=== PATIENT | female | born 1940 | race Caucasian/White ===

== ENCOUNTER 2016-09-03 08:00 | Outpatient (CLI) | payer MEDICARE, OTHER | END 2016-09-03 08:01 | disposition home or self-care (01) | DX: I48.91 Unspecified atrial fibrillation (principal) ==

== ENCOUNTER 2016-10-04 08:00 | Outpatient (CLI) | payer MEDICARE, OTHER | END 2016-10-04 08:01 | disposition home or self-care (01) | DX: E05.90 Thyrotoxicosis, unspecified without thyrotoxic crisis or storm (principal); I48.91 Unspecified atrial fibrillation ==

== ENCOUNTER 2016-11-08 08:51 | Outpatient (CLI) | payer MEDICARE, OTHER | END 2016-11-08 08:52 | disposition home or self-care (01) | DX: I48.91 Unspecified atrial fibrillation (principal) ==

== ENCOUNTER 2016-11-24 09:08 | Outpatient (CLI) | payer MEDICARE, OTHER | END 2016-11-24 09:09 | disposition home or self-care (01) | DX: E05.90 Thyrotoxicosis, unspecified without thyrotoxic crisis or storm (principal); I48.91 Unspecified atrial fibrillation ==

== ENCOUNTER 2016-12-22 08:53 | Outpatient (CLI) | payer MEDICARE, OTHER | END 2016-12-22 08:54 | disposition home or self-care (01) | DX: I48.91 Unspecified atrial fibrillation (principal) ==

== ENCOUNTER 2017-01-14 08:29 | Outpatient (CLI) | payer MEDICARE, OTHER | END 2017-01-14 08:30 | disposition home or self-care (01) | LOC: LAB.F 08:29 | PROVIDERS: ATTEND Pharmacist | DX: I48.91 Unspecified atrial fibrillation (principal) | CPT/HCPCS: 85610 ==

== ENCOUNTER 2017-02-09 08:53 | Outpatient (CLI) | payer MEDICARE, OTHER ==
[2017-02-09 18:52] LABS: THYROID STIMULATING HORMONE 4.15 uIU/mL (0.34-5.60)
== END 2017-02-09 08:54 | disposition home or self-care (01) ==
LOC: LAB.F 08:53
PROVIDERS: ATTEND Internal Medicine Endocrinology, Diabetes & Metabolism
DX: E05.90 Thyrotoxicosis, unspecified without thyrotoxic crisis or storm (principal); Z79.01 Long term (current) use of anticoagulants
CPT/HCPCS: 36415; 84439; 84443; 85610

== ENCOUNTER 2017-03-09 08:00 | Outpatient (CLI) | payer MEDICARE, OTHER ==
[2017-03-09 19:20] LABS: THYROID STIMULATING HORMONE 1.95 uIU/mL (0.34-5.60)
== END 2017-03-09 08:01 | disposition home or self-care (01) ==
LOC: LAB.F 08:00
PROVIDERS: ATTEND Internal Medicine Endocrinology, Diabetes & Metabolism
DX: Z79.01 Long term (current) use of anticoagulants (principal); E05.90 Thyrotoxicosis, unspecified without thyrotoxic crisis or storm
CPT/HCPCS: 36415; 84439; 84443; 85610

== ENCOUNTER 2017-04-11 14:37 | Outpatient (CLI) | payer MEDICARE, OTHER ==
[2017-04-11 19:38] LABS: THYROID STIMULATING HORMONE < 0.08 uIU/mL (0.34-5.60)
== END 2017-04-11 14:38 | disposition home or self-care (01) ==
LOC: LAB.F 14:37
PROVIDERS: ATTEND Internal Medicine Endocrinology, Diabetes & Metabolism
DX: E05.90 Thyrotoxicosis, unspecified without thyrotoxic crisis or storm (principal); Z79.01 Long term (current) use of anticoagulants
CPT/HCPCS: 36415; 84439; 84443; 85610

== ENCOUNTER 2017-04-20 12:51 | Outpatient (CLI) | payer MEDICARE, OTHER | END 2017-04-20 12:52 | disposition home or self-care (01) | LOC: LAB.F 12:51 | PROVIDERS: ATTEND Internal Medicine | DX: Z79.01 Long term (current) use of anticoagulants (principal) | CPT/HCPCS: 85610 ==

== ENCOUNTER 2017-05-12 10:37 | Outpatient (CLI) | payer MEDICARE, OTHER ==
[2017-05-12 18:28] LABS: THYROID STIMULATING HORMONE < 0.08 uIU/mL (0.34-5.60)
== END 2017-05-12 10:38 | disposition home or self-care (01) ==
LOC: LAB.F 10:37
PROVIDERS: ATTEND Internal Medicine
DX: E05.90 Thyrotoxicosis, unspecified without thyrotoxic crisis or storm (principal); Z79.01 Long term (current) use of anticoagulants
CPT/HCPCS: 36415; 84439; 84443; 85610

== ENCOUNTER 2017-05-25 09:47 | Outpatient (CLI) | payer MEDICARE, OTHER | END 2017-05-25 09:48 | disposition home or self-care (01) | LOC: LAB.F 09:47 | PROVIDERS: ATTEND Internal Medicine | DX: Z79.01 Long term (current) use of anticoagulants (principal) | CPT/HCPCS: 85610 ==

== ENCOUNTER 2017-06-29 09:10 | Outpatient (CLI) | payer MEDICARE, OTHER ==
[2017-06-29 17:57] LABS: THYROID STIMULATING HORMONE 0.68 uIU/mL (0.34-5.60)
[2017-07-01 15:22] LABS: TEST RESULT REPORT
[2017-07-01 17:52] LABS: TEST RESULT REPORT
== END 2017-06-29 09:11 | disposition home or self-care (01) ==
LOC: LAB.F 09:10
PROVIDERS: ATTEND Internal Medicine Endocrinology, Diabetes & Metabolism
DX: E05.90 Thyrotoxicosis, unspecified without thyrotoxic crisis or storm (principal); Z79.01 Long term (current) use of anticoagulants
CPT/HCPCS: 36415; 81599; 83519; 84439; 84443; 85610

== ENCOUNTER 2017-07-28 10:27 | Outpatient (CLI) | payer MEDICARE, OTHER ==
[2017-07-28 18:10] LABS: THYROID STIMULATING HORMONE 2.5 uIU/mL (0.34-5.60)
== END 2017-07-28 10:28 | disposition home or self-care (01) ==
LOC: LAB.F 10:27
PROVIDERS: ATTEND Internal Medicine Endocrinology, Diabetes & Metabolism
DX: E05.90 Thyrotoxicosis, unspecified without thyrotoxic crisis or storm (principal); Z79.01 Long term (current) use of anticoagulants
CPT/HCPCS: 36415; 84439; 84443; 85610

== ENCOUNTER 2017-09-01 08:51 | Outpatient (CLI) | payer MEDICARE, OTHER | END 2017-09-01 08:52 | disposition home or self-care (01) | LOC: LAB.F 08:51 | PROVIDERS: ATTEND Internal Medicine | DX: Z79.01 Long term (current) use of anticoagulants (principal) | CPT/HCPCS: 85610 ==

== ENCOUNTER 2017-09-28 08:25 | Outpatient (CLI) | payer MEDICARE, OTHER | END 2017-09-28 08:26 | disposition home or self-care (01) | LOC: LAB.F 08:25 | PROVIDERS: ATTEND Internal Medicine | DX: Z79.01 Long term (current) use of anticoagulants (principal) | CPT/HCPCS: 85610 ==

== ENCOUNTER 2017-10-21 08:25 | Outpatient (CLI) | payer MEDICARE, OTHER | END 2017-10-21 08:26 | disposition home or self-care (01) | LOC: LAB.F 08:25 | PROVIDERS: ATTEND Internal Medicine | DX: Z79.01 Long term (current) use of anticoagulants (principal) | CPT/HCPCS: 85610 ==

== ENCOUNTER 2017-10-27 08:55 | Outpatient (CLI) | payer MEDICARE, OTHER | END 2017-10-27 08:56 | disposition home or self-care (01) | LOC: LAB.F 08:55 | PROVIDERS: ATTEND Internal Medicine | DX: Z79.01 Long term (current) use of anticoagulants (principal) | CPT/HCPCS: 85610 ==

== ENCOUNTER 2017-11-29 09:01 | Outpatient (CLI) | payer MEDICARE, OTHER | END 2017-11-29 09:02 | disposition home or self-care (01) | LOC: LAB.F 09:01 | PROVIDERS: ATTEND Internal Medicine | DX: Z79.01 Long term (current) use of anticoagulants (principal) | CPT/HCPCS: 85610 ==

== ENCOUNTER 2017-12-26 09:30 | Outpatient (CLI) | payer MEDICARE, OTHER | END 2017-12-26 09:31 | disposition home or self-care (01) | LOC: LAB.F 09:30 | PROVIDERS: ATTEND Internal Medicine | DX: Z79.01 Long term (current) use of anticoagulants (principal) | CPT/HCPCS: 85610 ==

== ENCOUNTER 2018-01-04 08:00 | Outpatient (CLI) | payer MEDICARE, OTHER ==
[2018-01-04 18:05] LABS: T4 (THYROXINE) 6.89 ug/dL (6.09-12.23)
[2018-01-04 18:09] LABS: THYROID STIMULATING HORMONE 4.8 uIU/mL (0.34-5.60)
[2018-01-04 18:11] LABS: FREE T4 (FREE THYROXINE) 0.63 ng/dL (0.58-1.64)
== END 2018-01-04 08:01 | disposition home or self-care (01) ==
LOC: LAB.F 08:00
PROVIDERS: ATTEND Internal Medicine Endocrinology, Diabetes & Metabolism
DX: E05.90 Thyrotoxicosis, unspecified without thyrotoxic crisis or storm (principal)
CPT/HCPCS: 36415; 84436; 84439; 84443

== ENCOUNTER 2018-01-11 09:20 | Outpatient (CLI) | payer MEDICARE, OTHER | END 2018-01-11 09:21 | disposition home or self-care (01) | LOC: LAB.F 09:20 | PROVIDERS: ATTEND Internal Medicine | DX: Z79.01 Long term (current) use of anticoagulants (principal) | CPT/HCPCS: 85610 ==

== ENCOUNTER 2018-02-01 13:23 | Outpatient (CLI) | payer MEDICARE, OTHER | END 2018-02-01 13:24 | disposition home or self-care (01) | LOC: LAB.F 13:23 | PROVIDERS: ATTEND Internal Medicine | DX: Z79.01 Long term (current) use of anticoagulants (principal) | CPT/HCPCS: 85610 ==

== ENCOUNTER 2018-02-21 08:00 | Outpatient (CLI) | payer MEDICARE, OTHER | END 2018-02-21 08:01 | disposition home or self-care (01) | LOC: LAB.F 08:00 | PROVIDERS: ATTEND Internal Medicine | DX: Z79.01 Long term (current) use of anticoagulants (principal) | CPT/HCPCS: 85610 ==

== ENCOUNTER 2018-03-06 12:57 | Outpatient (CLI) | payer MEDICARE, OTHER | END 2018-03-06 12:58 | disposition home or self-care (01) | LOC: LAB.F 12:57 | PROVIDERS: ATTEND Internal Medicine | DX: Z79.01 Long term (current) use of anticoagulants (principal) | CPT/HCPCS: 85610 ==

== ENCOUNTER 2018-03-28 12:47 | Outpatient (CLI) | payer MEDICARE, OTHER | END 2018-03-28 12:48 | disposition home or self-care (01) | LOC: LAB.F 12:47 | PROVIDERS: ATTEND Internal Medicine | DX: Z79.01 Long term (current) use of anticoagulants (principal) | CPT/HCPCS: 85610 ==

== ENCOUNTER 2018-04-26 14:29 | Outpatient (CLI) | payer MEDICARE, OTHER | END 2018-04-26 14:30 | disposition home or self-care (01) | LOC: LAB.F 14:29 | PROVIDERS: ATTEND Internal Medicine Endocrinology, Diabetes & Metabolism | DX: E05.90 Thyrotoxicosis, unspecified without thyrotoxic crisis or storm (principal); Z79.01 Long term (current) use of anticoagulants | CPT/HCPCS: 36415; 84443; 85610 ==

== ENCOUNTER 2018-06-06 10:23 | Outpatient (CLI) | payer MEDICARE, OTHER | END 2018-06-06 10:24 | disposition home or self-care (01) | LOC: LAB.F 10:23 | PROVIDERS: ATTEND Internal Medicine | DX: Z79.01 Long term (current) use of anticoagulants (principal) | CPT/HCPCS: 85610 ==

== ENCOUNTER 2018-07-07 11:10 | Outpatient (CLI) | payer MEDICARE, OTHER | END 2018-07-07 11:11 | disposition home or self-care (01) | LOC: LAB.F 11:10 | PROVIDERS: ATTEND Internal Medicine | DX: Z79.01 Long term (current) use of anticoagulants (principal) | CPT/HCPCS: 85610 ==

== ENCOUNTER 2018-08-09 10:23 | Outpatient (CLI) | payer MEDICARE, OTHER | END 2018-08-09 10:24 | disposition home or self-care (01) | LOC: LAB.F 10:23 | PROVIDERS: ATTEND Internal Medicine | DX: Z79.01 Long term (current) use of anticoagulants (principal) | CPT/HCPCS: 85610 ==

== ENCOUNTER 2018-10-18 09:37 | Outpatient (CLI) | payer MEDICARE, OTHER | END 2018-10-18 09:38 | disposition home or self-care (01) | LOC: LAB.F 09:37 | PROVIDERS: ATTEND Internal Medicine | DX: Z79.01 Long term (current) use of anticoagulants (principal) | CPT/HCPCS: 85610 ==

== ENCOUNTER 2018-11-02 09:53 | Outpatient (CLI) | payer MEDICARE, OTHER | END 2018-11-02 09:54 | disposition home or self-care (01) | LOC: LAB.F 09:53 | PROVIDERS: ATTEND Internal Medicine | DX: Z79.01 Long term (current) use of anticoagulants (principal) | CPT/HCPCS: 85610 ==

== ENCOUNTER 2018-11-29 09:44 | Outpatient (CLI) | payer MEDICARE, OTHER | END 2018-11-29 09:45 | disposition home or self-care (01) | LOC: LAB.F 09:44 | PROVIDERS: ATTEND Internal Medicine | DX: Z79.01 Long term (current) use of anticoagulants (principal) | CPT/HCPCS: 85610 ==

== ENCOUNTER 2018-12-27 11:06 | Outpatient (CLI) | payer MEDICARE, OTHER | END 2018-12-27 11:07 | disposition home or self-care (01) | LOC: LAB.F 11:06 | PROVIDERS: ATTEND Internal Medicine | DX: Z51.81 Encounter for therapeutic drug level monitoring (principal); Z79.01 Long term (current) use of anticoagulants | CPT/HCPCS: 85610 ==

== ENCOUNTER 2019-01-24 10:45 | Outpatient (CLI) | payer MEDICARE, OTHER | END 2019-01-24 10:46 | disposition home or self-care (01) | LOC: LAB.F 10:45 | PROVIDERS: ATTEND Internal Medicine | DX: Z51.81 Encounter for therapeutic drug level monitoring (principal); Z79.01 Long term (current) use of anticoagulants | CPT/HCPCS: 85610 ==

== ENCOUNTER 2019-02-13 09:55 | Outpatient (CLI) | payer MEDICARE, OTHER | END 2019-02-13 09:56 | disposition home or self-care (01) | LOC: LAB.F 09:55 | PROVIDERS: ATTEND Internal Medicine | DX: Z79.01 Long term (current) use of anticoagulants (principal) | CPT/HCPCS: 85610 ==

== ENCOUNTER 2019-03-07 08:59 | Outpatient (CLI) | payer MEDICARE, OTHER | END 2019-03-07 09:00 | disposition home or self-care (01) | LOC: LAB.S 08:59 | PROVIDERS: ATTEND Internal Medicine | DX: Z79.01 Long term (current) use of anticoagulants (principal) | CPT/HCPCS: 85610 ==

== ENCOUNTER 2019-05-02 09:38 | Outpatient (CLI) | payer MEDICARE, OTHER | END 2019-05-02 09:39 | disposition home or self-care (01) | LOC: LAB.S 09:38 | PROVIDERS: ATTEND Internal Medicine | DX: Z79.01 Long term (current) use of anticoagulants (principal) | CPT/HCPCS: 85610 ==

== ENCOUNTER 2019-05-09 10:17 | Outpatient (CLI) | payer MEDICARE, OTHER | END 2019-05-09 10:18 | disposition home or self-care (01) | LOC: LAB.S 10:17 | PROVIDERS: ATTEND Internal Medicine | DX: Z79.01 Long term (current) use of anticoagulants (principal) | CPT/HCPCS: 85610 ==

== ENCOUNTER 2019-06-07 09:27 | Outpatient (CLI) | payer MEDICARE, OTHER | END 2019-06-07 09:28 | disposition home or self-care (01) | LOC: LAB.S 09:27 | PROVIDERS: ATTEND Internal Medicine | DX: Z79.01 Long term (current) use of anticoagulants (principal) | CPT/HCPCS: 85610 ==

== ENCOUNTER 2019-06-21 13:09 | Outpatient (CLI) | payer MEDICARE, OTHER | END 2019-06-21 13:10 | disposition home or self-care (01) | LOC: LAB.S 13:09 | PROVIDERS: ATTEND Internal Medicine | DX: Z79.01 Long term (current) use of anticoagulants (principal) | CPT/HCPCS: 85610 ==

== ENCOUNTER 2019-07-25 09:32 | Outpatient (CLI) | payer MEDICARE, OTHER | END 2019-07-25 09:33 | disposition home or self-care (01) | LOC: LAB.S 09:32 | PROVIDERS: ATTEND Internal Medicine | DX: Z79.01 Long term (current) use of anticoagulants (principal) | CPT/HCPCS: 85610 ==

== ENCOUNTER 2019-08-28 08:00 | Outpatient (CLI) | payer MEDICARE, OTHER | END 2019-08-28 23:59 | disposition home or self-care (01) | LOC: LAB.S 08:00 | PROVIDERS: ATTEND Internal Medicine | DX: Z79.01 Long term (current) use of anticoagulants (principal) | CPT/HCPCS: 85610 ==

== ENCOUNTER 2019-09-26 10:22 | Outpatient (CLI) | payer MEDICARE, OTHER | END 2019-09-26 10:23 | disposition home or self-care (01) | LOC: LAB.S 10:22 | PROVIDERS: ATTEND Internal Medicine | DX: Z79.01 Long term (current) use of anticoagulants (principal) | CPT/HCPCS: 85610 ==

== ENCOUNTER 2019-10-24 09:54 | Outpatient (CLI) | payer MEDICARE, OTHER | END 2019-10-24 09:55 | disposition home or self-care (01) | LOC: LAB.S 09:54 | PROVIDERS: ATTEND Internal Medicine | DX: Z79.01 Long term (current) use of anticoagulants (principal) | CPT/HCPCS: 85610 ==

== ENCOUNTER 2019-11-14 10:36 | Outpatient (CLI) | payer MEDICARE, OTHER | END 2019-11-14 10:37 | disposition home or self-care (01) | LOC: LAB.S 10:36 | PROVIDERS: ATTEND Internal Medicine | DX: Z79.01 Long term (current) use of anticoagulants (principal) | CPT/HCPCS: 85610 ==

== ENCOUNTER 2020-01-01 10:22 | Outpatient (CLI) | payer MEDICARE, OTHER | END 2020-01-01 10:23 | disposition home or self-care (01) | LOC: LAB 10:22 | PROVIDERS: ATTEND Internal Medicine | DX: Z79.01 Long term (current) use of anticoagulants (principal) | CPT/HCPCS: 85610 ==

== ENCOUNTER 2020-01-23 13:12 | Outpatient (CLI) | payer MEDICARE, OTHER | END 2020-01-23 13:13 | disposition home or self-care (01) | LOC: LAB.S 13:12 | PROVIDERS: ATTEND Internal Medicine | DX: Z79.01 Long term (current) use of anticoagulants (principal) | CPT/HCPCS: 85610 ==

== ENCOUNTER 2020-02-26 10:14 | Outpatient (CLI) | payer MEDICARE, OTHER | END 2020-02-26 10:15 | disposition home or self-care (01) | LOC: LAB.S 10:14 | PROVIDERS: ATTEND Internal Medicine | DX: Z79.01 Long term (current) use of anticoagulants (principal) | CPT/HCPCS: 85610 ==

== ENCOUNTER 2020-03-26 10:57 | Outpatient (CLI) | payer MEDICARE, OTHER | END 2020-03-26 10:58 | disposition home or self-care (01) | LOC: LAB.S 10:57 | PROVIDERS: ATTEND Internal Medicine | DX: Z79.01 Long term (current) use of anticoagulants (principal) | CPT/HCPCS: 85610 ==

== ENCOUNTER 2020-04-23 13:43 | Outpatient (CLI) | payer MEDICARE, OTHER | END 2020-04-23 13:44 | disposition home or self-care (01) | LOC: LAB.S 13:43 | PROVIDERS: ATTEND Internal Medicine | DX: Z79.01 Long term (current) use of anticoagulants (principal) | CPT/HCPCS: 85610 ==

== ENCOUNTER 2020-06-19 10:28 | Outpatient (CLI) | payer MEDICARE, OTHER | END 2020-06-19 10:29 | disposition home or self-care (01) | LOC: LAB.S 10:28 | PROVIDERS: ATTEND Internal Medicine | DX: Z79.01 Long term (current) use of anticoagulants (principal) | CPT/HCPCS: 85610 ==

== ENCOUNTER 2020-07-03 12:03 | Outpatient (CLI) | payer MEDICARE, OTHER | END 2020-07-03 12:04 | disposition home or self-care (01) | LOC: COV 12:03 | PROVIDERS: ATTEND Family Medicine | DX: R05 Cough (principal); Z20.828 Contact with and (suspected) exposure to other viral communicable diseases ==

== ENCOUNTER 2020-07-15 11:24 | Outpatient (CLI) | payer MEDICARE, OTHER | END 2020-07-15 11:25 | disposition home or self-care (01) | LOC: LAB.S 11:24 | PROVIDERS: ATTEND Internal Medicine | DX: Z79.01 Long term (current) use of anticoagulants (principal) | CPT/HCPCS: 85610 ==

== ENCOUNTER 2020-08-12 11:29 | Outpatient (CLI) | payer MEDICARE, OTHER | END 2020-08-12 11:30 | disposition home or self-care (01) | LOC: LAB.S 11:29 | PROVIDERS: ATTEND Internal Medicine | DX: Z79.01 Long term (current) use of anticoagulants (principal) | CPT/HCPCS: 85610 ==

== ENCOUNTER 2020-09-16 13:44 | Outpatient (CLI) | payer MEDICARE, OTHER | END 2020-09-16 13:45 | disposition home or self-care (01) | LOC: LAB.S 13:44 | PROVIDERS: ATTEND Internal Medicine | DX: Z79.01 Long term (current) use of anticoagulants (principal) | CPT/HCPCS: 85610 ==

== ENCOUNTER 2020-10-23 11:16 | Outpatient (CLI) | payer MEDICARE, OTHER | END 2020-10-23 11:17 | disposition home or self-care (01) | LOC: LAB.S 11:16 | PROVIDERS: ATTEND Internal Medicine | DX: Z79.01 Long term (current) use of anticoagulants (principal) | CPT/HCPCS: 85610 ==

== ENCOUNTER 2020-12-02 11:27 | Outpatient (CLI) | payer MEDICARE, OTHER | END 2020-12-02 11:28 | disposition home or self-care (01) | LOC: LAB.S 11:27 | PROVIDERS: ATTEND Internal Medicine | DX: Z79.01 Long term (current) use of anticoagulants (principal) | CPT/HCPCS: 85610 ==

== ENCOUNTER 2021-01-28 15:21 | Outpatient (CLI) | payer MEDICARE, OTHER | END 2021-01-28 15:22 | disposition home or self-care (01) | LOC: LAB.S 15:21 | PROVIDERS: ATTEND Internal Medicine | DX: Z79.01 Long term (current) use of anticoagulants (principal) | CPT/HCPCS: 36416; 85610 ==

== ENCOUNTER 2021-02-04 11:04 | Outpatient (CLI) | payer MEDICARE, OTHER | END 2021-02-04 11:05 | disposition home or self-care (01) | LOC: LAB.S 11:04 | PROVIDERS: ATTEND Internal Medicine | DX: Z79.01 Long term (current) use of anticoagulants (principal) | CPT/HCPCS: 36416; 85610 ==

== ENCOUNTER 2021-02-19 13:52 | Outpatient (CLI) | payer MEDICARE, OTHER | END 2021-02-19 13:53 | disposition home or self-care (01) | LOC: LAB.S 13:52 | PROVIDERS: ATTEND Internal Medicine | DX: Z79.01 Long term (current) use of anticoagulants (principal) | CPT/HCPCS: 36416; 85610 ==

== ENCOUNTER 2021-03-04 10:08 | Outpatient (CLI) | payer MEDICARE, OTHER | END 2021-03-04 10:09 | disposition home or self-care (01) | LOC: LAB.S 10:08 | PROVIDERS: ATTEND Internal Medicine | DX: Z79.01 Long term (current) use of anticoagulants (principal) | CPT/HCPCS: 36416; 85610 ==

== ENCOUNTER 2021-03-19 10:05 | Outpatient (CLI) | payer MEDICARE, OTHER | END 2021-03-19 10:06 | disposition home or self-care (01) | LOC: LAB.S 10:05 | PROVIDERS: ATTEND Internal Medicine | DX: Z79.01 Long term (current) use of anticoagulants (principal) | CPT/HCPCS: 36416; 85610 ==

== ENCOUNTER 2021-04-06 10:12 | Outpatient (CLI) | payer MEDICARE, OTHER | END 2021-04-06 10:13 | disposition home or self-care (01) | LOC: LAB.S 10:12 | PROVIDERS: ATTEND Internal Medicine | DX: Z79.01 Long term (current) use of anticoagulants (principal) | CPT/HCPCS: 36416; 85610 ==

== ENCOUNTER 2021-04-13 10:27 | Outpatient (CLI) | payer MEDICARE, OTHER ==
[2021-04-13 15:45] LABS: FREE T3 3.26 pg/mL (2.5-3.9)
[2021-04-13 15:50] LABS: FREE T4 (FREE THYROXINE) 0.84 ng/dL (0.58-1.64)
== END 2021-04-13 10:28 | disposition home or self-care (01) ==
LOC: LAB.S 10:27
DX: T31.9 Burns involving 90% or more of body surface (principal); R53.83 Other fatigue; R68.89 Other general symptoms and signs
CPT/HCPCS: 36415; 84439; 84481; 87040

== ENCOUNTER 2021-05-06 10:46 | Outpatient (CLI) | payer MEDICARE, OTHER | END 2021-05-06 10:47 | disposition home or self-care (01) | LOC: LAB.S 10:46 | PROVIDERS: ATTEND Internal Medicine | DX: Z79.01 Long term (current) use of anticoagulants (principal) | CPT/HCPCS: 36416; 85610 ==

== ENCOUNTER 2021-05-08 09:38 | Outpatient (CLI) | payer MEDICARE, OTHER | END 2021-05-08 09:39 | disposition home or self-care (01) | LOC: LAB.S 09:38 | PROVIDERS: ATTEND Internal Medicine | DX: Z79.01 Long term (current) use of anticoagulants (principal); I48.0 Paroxysmal atrial fibrillation | CPT/HCPCS: 36416; 85610 ==

== ENCOUNTER 2021-05-14 10:19 | Outpatient (CLI) | payer MEDICARE, OTHER | END 2021-05-14 10:20 | disposition home or self-care (01) | LOC: LAB.S 10:19 | PROVIDERS: ATTEND Internal Medicine | DX: Z79.01 Long term (current) use of anticoagulants (principal) | CPT/HCPCS: 36416; 85610 ==

== ENCOUNTER 2021-05-21 10:23 | Outpatient (CLI) | payer MEDICARE, OTHER | END 2021-05-21 10:24 | disposition home or self-care (01) | LOC: LAB.S 10:23 | PROVIDERS: ATTEND Internal Medicine | DX: Z79.01 Long term (current) use of anticoagulants (principal) | CPT/HCPCS: 36416; 85610 ==

== ENCOUNTER 2021-06-11 09:50 | Outpatient (CLI) | payer MEDICARE, OTHER | END 2021-06-11 09:51 | disposition home or self-care (01) | LOC: LAB.S 09:50 | PROVIDERS: ATTEND Internal Medicine | DX: Z79.01 Long term (current) use of anticoagulants (principal) | CPT/HCPCS: 36416; 85610 ==

== ENCOUNTER 2021-07-05 19:06 | Outpatient (CLI) | payer MEDICARE, OTHER | END 2021-07-05 19:07 | disposition critical access hospital (66) | LOC: EMS 19:06 | DX: R55 Syncope and collapse (principal) | CPT/HCPCS: A0425; A0429 ==

== ENCOUNTER 2021-07-05 19:35 | Emergency (ER) | payer MEDICARE, OTHER ==
--- NOTE | 2021-07-05 19:45 | ED Physician Documentation ---
PD HPI ALTERED MENTAL STATUS - Stated complaint Stated Complaint: NEAR SYNCOPE - Chief complaint Chief Complaint: Neuro - History obtained from History obtained from: Patient, Family, EMS - Additional information Additional information: 80yo femle with eczema and afib presents via EMS For altered mental status and fever. Reportedly has been treated for eczema at [facility] with body wide high potency steroid and today became confused around lunchtime. Had temp of 101.5. Patient has no complaints but is altered and a poor historian. I tried calling the house phone on arrival to talk with the but there was no answer. 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, Breast implants - Present Medications Home Medications: Ambulatory Orders Medication Instructions Recorded Confirmed Estradiol 0.05 mg Patch [Climara 03/14/15 07/16/15 0.05 mg] Sotalol [Betapace] 80 mg PO DAILY 07/16/15 07/16/15 - Allergies Allergies/Adverse Reactions: Allergies Allergy/AdvReac Type Severity Reaction Status Date / Time No Known Drug Allergies Allergy Verified 07/05/21 19:48 - Social History Does the pt smoke?: No Does the pt drink ETOH?: No Does the pt have substance abuse?: No - Immunizations Immunizations: TDAP >10years/unknown - POLST Patient has POLST: No PD ED PE NORMAL - Vitals Vital signs reviewed: Yes - General General: Other (Is alert and oriented to person but not place or time or events. She is tachypneic and tachycardic.) - HEENT HEENT: PERRL, EOMI - Neck Neck: Supple, no meningeal sign, No bony TTP - Cardiac Cardiac: Other (Irregularly irregular and rapid) - Respiratory Respiratory: Clear bilaterally, Other (Tachypneic but nonlabored and clear) - Abdomen Abdomen: Soft, Non tender - Derm Derm: Normal color, Warm and dry, Other (She has diffuse erythema especially anteriorly with a fine pustular rash especially in the axilla and upper arms and legs. Scalp to but seems to spare the face.) - Neuro Neuro: No motor deficit, No sensory deficit Eye Opening: Spontaneous Motor: Obeys Commands Verbal: Confused GCS Score: 14 Results - Vitals Vitals: Vital Signs - 24 hr 07/05/21 07/05/21 07/05/21 19:30 20:42 21:00 Temperature 37.6 C Heart Rate 98 95 96 Respiratory 25 H 21 Rate Blood Pressure 125/73 143/51 H 141/46 H O2 Saturation 98 99 96 07/05/21 21:54 Temperature Heart Rate 87 Respiratory 24 Rate Blood Pressure 132/47 H O2 Saturation 97 Oxygen O2 Source Room air - EKG (time done) 1944 Rate: Rate (enter#) (102) Rhythm: Sinus tachycardia (w pvc), LAE [place]: Normal Intervals: Normal [place] QRS: Normal Ischemia: Q waves (ant/septal). No: ST elevation c/w ischemia, ST depression - Labs Labs: Laboratory Tests 07/05/21 07/05/21 07/05/21 20:04 20:04 20:04 WBC 20.3 H RBC 3.62 L Hgb 10.8 L Hct 34.8 L MCV 96.1 MCH 29.8 MCHC 31.0 L RDW 15.8 H Plt Count 203 MPV 11.0 H Neut # (Auto) 18.1 H Lymph # (Auto) 1.0 L [place] # (Auto) 0.9 Eos # (Auto) 0.1 Baso # (Auto) 0.1 Absolute Nucleated RBC 0.00 Nucleated RBC % 0.0 PT INR VBG pH 7.511 H VBG pCO2 32.4 L VBG pO2 73.2 H VBG HCO3 25.3 VBG Total CO2 26.3 VBG O2 Saturation 95.4 H VBG Base Excess 2.7 H Sodium 134 L Potassium 3.4 L Chloride 100 L Carbon Dioxide 23 Anion Gap 11.0 BUN 21 H Creatinine 0.6 Estimated GFR (MDRD) 96 Glucose 146 H Lactic Acid Calcium 8.3 L Total Bilirubin 0.9 AST 49 H ALT 32 Alkaline Phosphatase 105 Total Protein 6.5 L Albumin 3.0 L Globulin 3.5 Albumin/Globulin Ratio 0.9 L TSH Urine Color Urine Clarity Urine pH Ur Specific [place] Urine Protein Urine Glucose (UA) Urine Ketones Urine Occult Blood Urine Nitrite Urine Bilirubin Urine Urobilinogen Ur Leukocyte Esterase Urine RBC Urine WBC Ur Squamous Epith Cells Urine Bacteria Urine Culture Comments Nasal Adenovirus (PCR) Nasal B. parapertussis DNA (PCR) Nasal Coronavir 229E PCR Nasal Coronavir HKU1 PCR Nasal Coronavir NL63 PCR Nasal Coronavir OC43 PCR Nasal Enterovir/Rhinovir PCR Nasal Influenza B PCR Nasal Influenza A PCR Nasal Parainfluen 1 PCR Nasal Parainfluen 2 PCR Nasal Parainfluen 3 PCR Nasal Parainfluen 4 PCR Nasal RSV (PCR) Nasal B.pertussis DNA PCR Nasal C.pneumoniae (PCR) Justyn Human Metapneumo PCR Nasal M.pneumoniae (PCR) Nasal SARS-CoV-2 (PCR) 07/05/21 07/05/21 07/05/21 20:04 20:04 20:26 WBC RBC Hgb Hct MCV MCH MCHC RDW Plt Count MPV Neut # (Auto) Lymph # (Auto) [place] # (Auto) Eos # (Auto) Baso # (Auto) Absolute Nucleated RBC Nucleated RBC % PT 15.1 H INR 1.4 H VBG pH VBG pCO2 VBG pO2 VBG HCO3 VBG Total CO2 VBG O2 Saturation VBG Base Excess Sodium Potassium Chloride Carbon Dioxide Anion Gap BUN Creatinine Estimated GFR (MDRD) Glucose Lactic Acid 1.8 Calcium Total Bilirubin AST ALT Alkaline Phosphatase Total Protein Albumin Globulin Albumin/Globulin Ratio TSH 1.89 Urine Color Urine Clarity Urine pH Ur Specific [place] Urine Protein Urine Glucose (UA) Urine Ketones Urine Occult Blood Urine Nitrite Urine Bilirubin Urine Urobilinogen Ur Leukocyte Esterase Urine RBC Urine WBC Ur Squamous Epith Cells Urine Bacteria Urine Culture Comments Nasal Adenovirus (PCR) Nasal B. parapertussis DNA (PCR) Nasal Coronavir 229E PCR Nasal Coronavir HKU1 PCR Nasal Coronavir NL63 PCR Nasal Coronavir OC43 PCR Nasal Enterovir/Rhinovir PCR Nasal Influenza B PCR Nasal Influenza A PCR Nasal Parainfluen 1 PCR Nasal Parainfluen 2 PCR Nasal Parainfluen 3 PCR Nasal Parainfluen 4 PCR Nasal RSV (PCR) Nasal B.pertussis DNA PCR Nasal C.pneumoniae (PCR) Justyn Human Metapneumo PCR Nasal M.pneumoniae (PCR) Nasal SARS-CoV-2 (PCR) 07/05/21 07/05/21 20:36 20:49 WBC RBC Hgb Hct MCV MCH MCHC RDW Plt Count MPV Neut # (Auto) Lymph # (Auto) [place] # (Auto) Eos # (Auto) Baso # (Auto) Absolute Nucleated RBC Nucleated RBC % PT INR VBG pH VBG pCO2 VBG pO2 VBG HCO3 VBG Total CO2 VBG O2 Saturation VBG Base Excess Sodium Potassium Chloride Carbon Dioxide Anion Gap BUN Creatinine Estimated GFR (MDRD) Glucose Lactic Acid Calcium Total Bilirubin AST ALT Alkaline Phosphatase Total Protein Albumin Globulin Albumin/Globulin Ratio TSH Urine Color YELLOW Urine Clarity CLEAR Urine pH 8.0 H Ur Specific [place] 1.015 Urine Protein TRACE Urine Glucose (UA) NEGATIVE Urine Ketones NEGATIVE Urine Occult Blood NEGATIVE Urine Nitrite NEGATIVE Urine Bilirubin NEGATIVE Urine Urobilinogen 1 (NORMAL) Ur Leukocyte Esterase NEGATIVE Urine RBC 0-5 Urine WBC 0-3 Ur Squamous Epith Cells RARE Squamous Urine Bacteria None Seen Urine Culture Comments NOT INDICATED Nasal Adenovirus (PCR) NOT DETECTED Nasal B. parapertussis DNA (PCR) NOT DETECTED Nasal Coronavir 229E PCR NOT DETECTED Nasal Coronavir HKU1 PCR NOT DETECTED Nasal Coronavir NL63 PCR NOT DETECTED Nasal Coronavir OC43 PCR NOT DETECTED Nasal Enterovir/Rhinovir PCR NOT DETECTED Nasal Influenza B PCR NOT DETECTED Nasal Influenza A PCR NOT DETECTED Nasal Parainfluen 1 PCR NOT DETECTED Nasal Parainfluen 2 PCR NOT DETECTED Nasal Parainfluen 3 PCR NOT DETECTED Nasal Parainfluen 4 PCR NOT DETECTED Nasal RSV (PCR) NOT DETECTED Nasal B.pertussis DNA PCR NOT DETECTED Nasal C.pneumoniae (PCR) NOT DETECTED Justyn Human Metapneumo PCR NOT DETECTED Nasal M.pneumoniae (PCR) NOT DETECTED Nasal SARS-CoV-2 (PCR) NOT DETECTED - Rads (name of study) 1v cxr Radiology: EMP read contemporaneously (NAD) PD MEDICAL DECISION MAKING - ED course ED course: Her arrived shortly after initial evaluation. He notes that the patient got out of [facility] 8 days ago. She was on prophylactic clindamycin which she recently completed. He does not think her eczema looks any worse than it has been. He notes that the patient has been quite weak and had a syncopal episode today while trying to go to the bathroom. She also was moving very slow and became incontinent of urine which is not usual for her. 80-year-old woman presents with encephalopathy/delirium associated with a fever of 101.5. She has a benign belly and no clinical findings of meningitis. No pulmonary complaints and chest x-ray is clear. By process of illumination and negative urinalysis I am worried that the skin may be her source, but her eczema is so bad that it there is a little difficult to differentiate without dermatology. Patient's wanted her transported to the [facility] which given the above is not unreasonable and she was very sick accepted by Dr. Haris Overton at approximately 10:05 PM. They did request that we hold her here for slightly later arrival, may be at 6:30 in the morning.Was administered cefepime and vancomycin after blood cultures here. The physician at [facility] did note that the leukocytosis was not particularly acute. Departure - Departure Disposition: 02 Transfer Acute Care Hosp Clinical Impression: Sepsis, Encephalopathy acute, Eczema Condition: Serious
[2021-07-05 20:14] LABS: BASOPHILS # (AUTO) 0.1 10^3/uL (0.0-0.1); BASOPHILS % (AUTO) 0.3 %; EOSINOPHILS # (AUTO) 0.1 10^3/uL (0.0-0.7); EOSINOPHILS % (AUTO) 0.3 %; HCT - HEMATOCRIT 34.8 % (37.0-47.0); HGB - HEMOGLOBIN 10.8 g/dL (12.0-16.0); LYMPHOCYTES % (AUTO) 5.1 %; MEAN CORPUSCULAR HEMOGLOBIN 29.8 pg (27.0-31.0); MEAN CORPUSCULAR VOLUME 96.1 fL (81.0-99.0); MONOCYTES # (AUTO) 0.9 10^3/uL (0.0-1.0); MONOCYTES % (AUTO) 4.5 %; NEUTROPHILS # (AUTO) 18.1 10^3/uL (1.5-6.6); NEUTROPHILS % (AUTO) 89.3 %; PLT - PLATELET COUNT 203 10^3/uL (130-450); RED BLOOD COUNT 3.62 10^6/uL (4.20-5.40); RED CELL DISTRIBUTION WIDTH 15.8 % (12.0-15.0); WHITE BLOOD COUNT 20.3 x10^3/uL (4.8-10.8)
[2021-07-05 20:16] LABS: VBG BASE EXCESS 2.7 mmol/L (-2 - +2); VBG HCO3 25.3 mmol/L (23-28); VBG OXYGEN SATURATION 95.4 % (60-80); VBG PCO2 32.4 mmHg (41-51); VBG PH 7.511 (7.31-7.41); VBG PO2 73.2 mmHg (25-47); VBG TOTAL CO2 26.3 mmol/L (24-29)
--- NOTE | 2021-07-05 20:23 | XRAY Report ---
PROCEDURE: Chest 1 View X-Ray INDICATIONS: fever TECHNIQUE: One view of the chest was acquired. COMPARISON: None. FINDINGS: Surgical changes and devices: None. Lungs and pleura: No pleural effusions or pneumothorax. Lungs are clear. Mediastinum: Mediastinal contours appear normal. Heart size is normal. Bones and chest wall: No suspicious bony lesions. Overlying soft tissues appear unremarkable. IMPRESSION: No acute cardiopulmonary pathology. Reviewed by: Pastor Marquez MD on 07/05/2021 8:22 PM [facility] Approved by: Pastor Marquez MD on 07/05/2021 8:22 PM [facility] Station ID: [id number]
[2021-07-05 20:25] LABS: ALBUMIN/GLOBULIN RATIO 0.9 (1.0-2.2); BILIRUBIN,TOTAL 0.9 mg/dL (0.2-1.0); CALCIUM 8.3 mg/dL (8.5-10.3); CREATININE 0.6 mg/dL (0.4-1.0); POTASSIUM 3.4 mmol/L (3.5-5.0); TOTAL PROTEIN 6.5 g/dL (6.7-8.2)
[2021-07-05] MEDS ORDERED: SODIUM CHLORIDE 0.9% 1,000 ML IV STA ×2 (20:31→22:06)
[2021-07-05 20:39] LABS: INR 1.4 (0.8-1.2); PT - PROTHROMBIN TIME 15.1 secs (9.9-12.6)
[2021-07-05 21:00] LABS: BILIRUBIN,URINE NEGATIVE (NEGATIVE); GLUCOSE, URINE (UA) NEGATIVE (NEGATIVE); KETONES,URINE (UA) NEGATIVE (NEGATIVE); LEUKOCYTE ESTERASE, URINE NEGATIVE (NEGATIVE); NITRITE,URINE NEGATIVE (NEGATIVE); OCCULT BLOOD,URINE NEGATIVE (NEGATIVE); PROTEIN,URINE TRACE mg/dL (NEGATIVE); UROBILINOGEN,URINE 1 (NORMAL) E.U./dL (NORMAL)
[2021-07-05 21:10] LABS: CLARITY,URINE CLEAR (CLEAR)
[2021-07-05] MEDS ORDERED: CEFEPIME 2 GM in SODIUM CHLORIDE 0.9% MINIBAG 100 ML IV STA (21:13)
[2021-07-05] MEDS ORDERED: VANCOMYCIN INJ 1.25 GM in SODIUM CHLORIDE 0.9% 500 ML IV STA (21:13)
[2021-07-05 21:17] LABS: BACTERIA,URINE None Seen /HPF (None Seen); RBC,URINE 0-5 /HPF (0-5); SQUAMOUS EPITHELIAL CELL,UR RARE Squamous (<= Few); WBC,URINE 0-3 /HPF (0-5)
[2021-07-05] MEDS ORDERED: VANCOMYCIN 1 GM VIAL ONE (21:22)
[2021-07-05 21:48] LABS: B. PARAPERTUSSIS- RESP PCR PAN NOT DETECTED; B. PERTUSSIS- RESP PCR PANEL NOT DETECTED; C. PNEUMONIAE- RESP PCR PANEL NOT DETECTED; CORONAVIRUS 229E-RESP PCR NOT DETECTED; CORONAVIRUS HKU1-RESP PCR NOT DETECTED; CORONAVIRUS NL63-RESP PCR NOT DETECTED; CORONAVIRUS OC43-RESP PCR NOT DETECTED; HUMAN METAPNEUMOVIRUS NOT DETECTED; INFLUENZA A- RESP PCR PANEL NOT DETECTED; INFLUENZA B - RESP PCR PANEL NOT DETECTED; M. PNEUMONIAE- RESP PCR PANEL NOT DETECTED; PARAINFLUENZA VIRUS 1 NOT DETECTED; PARAINFLUENZA VIRUS 2 NOT DETECTED; PARAINFLUENZA VIRUS 3 NOT DETECTED; PARAINFLUENZA VIRUS 4 NOT DETECTED; RHINOVIRUS/ENTEROVIRUS NOT DETECTED; RSV- RESP PCR PANEL NOT DETECTED; SARS-CoV-2 -RESP PCR PANEL NOT DETECTED
[2021-07-06] MEDS ORDERED: ACETAMINOPHEN 325 MG TABLET PO STA (04:35)
[2021-07-06 05:57] VITALS: BP 129/54
== END 2021-07-06 05:59 | disposition short-term general hospital (02) ==
LOC: EDUNIT# → ED 19:35
DX: A41.9 Sepsis, unspecified organism (principal); G93.40 Encephalopathy, unspecified; L30.9 Dermatitis, unspecified; I48.91 Unspecified atrial fibrillation; Z20.822 Contact with and (suspected) exposure to COVID-19
CPT/HCPCS: 36415; 71045; 80053; 81001; 82803; 83605; 84443; 85025; 85610; 87040; 87631; 93005; 96365; 96366; 96367; 99285; A9270; J3370; 0202U; 87086

== ENCOUNTER 2021-07-13 09:30 | Outpatient (CLI) | payer MEDICARE, OTHER | END 2021-07-13 09:31 | disposition home or self-care (01) | LOC: LAB.S 09:30 | PROVIDERS: ATTEND Internal Medicine | DX: Z79.01 Long term (current) use of anticoagulants (principal) | CPT/HCPCS: 36416; 85610 ==

== ENCOUNTER 2021-07-20 08:45 | Outpatient (CLI) | payer MEDICARE, OTHER | END 2021-07-20 08:46 | disposition home or self-care (01) | LOC: LAB.S 08:45 | PROVIDERS: ATTEND Internal Medicine | DX: Z79.01 Long term (current) use of anticoagulants (principal) | CPT/HCPCS: 36416; 85610 ==

== ENCOUNTER 2021-08-01 09:17 | Outpatient (CLI) | payer MEDICARE, OTHER ==
[2021-08-01 15:09] LABS: BASOPHILS % (AUTO) 0.3 %; EOSINOPHILS # (AUTO) 0.3 10^3/uL (0.0-0.7); EOSINOPHILS % (AUTO) 3.3 %; HCT - HEMATOCRIT 35.2 % (37.0-47.0); HGB - HEMOGLOBIN 10.9 g/dL (12.0-16.0); LYMPHOCYTES # (AUTO) 1.5 10^3/uL (1.5-3.5); LYMPHOCYTES % (AUTO) 14.3 %; MEAN CORPUSCULAR HEMOGLOBIN 28.8 pg (27.0-31.0); MEAN CORPUSCULAR VOLUME 92.9 fL (81.0-99.0); MEAN PLATELET VOLUME 9.8 fL (7.9-10.8); MONOCYTES # (AUTO) 0.5 10^3/uL (0.0-1.0); NEUTROPHILS # (AUTO) 7.9 10^3/uL (1.5-6.6); NEUTROPHILS % (AUTO) 76.7 %; PLT - PLATELET COUNT 403 10^3/uL (130-450); RED BLOOD COUNT 3.79 10^6/uL (4.20-5.40); RED CELL DISTRIBUTION WIDTH 15.9 % (12.0-15.0); WHITE BLOOD COUNT 10.3 x10^3/uL (4.8-10.8)
[2021-08-01 15:36] LABS: ALBUMIN/GLOBULIN RATIO 0.8 (1.0-2.2); BILIRUBIN,TOTAL 0.6 mg/dL (0.2-1.0); CALCIUM 9.1 mg/dL (8.5-10.3); CREATININE 0.5 mg/dL (0.4-1.0); POTASSIUM 4.3 mmol/L (3.5-5.0); TOTAL PROTEIN 6.9 g/dL (6.7-8.2)
== END 2021-08-01 09:18 | disposition home or self-care (01) ==
LOC: LAB.S 09:17
DX: Z51.81 Encounter for therapeutic drug level monitoring (principal); Z79.01 Long term (current) use of anticoagulants
CPT/HCPCS: 36415; 36416; 80053; 85025; 85610

== ENCOUNTER 2021-08-10 11:23 | Outpatient (CLI) | payer MEDICARE, OTHER | END 2021-08-10 11:24 | disposition home or self-care (01) | LOC: LAB.S 11:23 | PROVIDERS: ATTEND Internal Medicine | DX: Z79.01 Long term (current) use of anticoagulants (principal) | CPT/HCPCS: 36416; 85610 ==

== ENCOUNTER 2021-08-17 12:38 | Outpatient (CLI) | payer MEDICARE, OTHER | END 2021-08-17 12:39 | disposition home or self-care (01) | LOC: LAB.S 12:38 | PROVIDERS: ATTEND Internal Medicine | DX: Z79.01 Long term (current) use of anticoagulants (principal) | CPT/HCPCS: 36416; 85610 ==

== ENCOUNTER 2021-08-25 10:20 | Outpatient (CLI) | payer MEDICARE, OTHER | END 2021-08-25 10:21 | disposition critical access hospital (66) | LOC: EMS 10:20 | DX: R50.9 Fever, unspecified (principal); R53.1 Weakness; R41.0 Disorientation, unspecified | CPT/HCPCS: A0425; A0429 ==

== ENCOUNTER 2021-08-25 11:01 | Emergency (ER) | payer MEDICARE, OTHER ==
[2021-08-25 11:51] LABS: BASOPHILS % (AUTO) 0.3 %; EOSINOPHILS # (AUTO) 0.4 10^3/uL (0.0-0.7); EOSINOPHILS % (AUTO) 3.7 %; HCT - HEMATOCRIT 30.8 % (37.0-47.0); HGB - HEMOGLOBIN 9.7 g/dL (12.0-16.0); LYMPHOCYTES # (AUTO) 1.3 10^3/uL (1.5-3.5); MEAN CORPUSCULAR HEMOGLOBIN 28.8 pg (27.0-31.0); MEAN CORPUSCULAR HGB CONC 31.5 g/dL (32.0-36.0); MEAN CORPUSCULAR VOLUME 91.4 fL (81.0-99.0); MEAN PLATELET VOLUME 8.8 fL (7.9-10.8); MONOCYTES # (AUTO) 0.6 10^3/uL (0.0-1.0); MONOCYTES % (AUTO) 5.1 %; NEUTROPHILS # (AUTO) 9.3 10^3/uL (1.5-6.6); NEUTROPHILS % (AUTO) 79.5 %; PLT - PLATELET COUNT 376 10^3/uL (130-450); RED BLOOD COUNT 3.37 10^6/uL (4.20-5.40); WHITE BLOOD COUNT 11.7 x10^3/uL (4.8-10.8)
[2021-08-25 11:57] LABS: PT - PROTHROMBIN TIME 65.6 secs (9.9-12.6)
[2021-08-25] MEDS ORDERED: CARBOXYMETHYLCELLULOSE OPHTH DROPS LEFTEYE STA (11:59)
[2021-08-25 12:02] LABS: ALBUMIN 2.3 g/dL (3.2-5.5); ALBUMIN/GLOBULIN RATIO 0.7 (1.0-2.2); BILIRUBIN,TOTAL 0.5 mg/dL (0.2-1.0); CREATININE 0.7 mg/dL (0.4-1.0); POTASSIUM 3.9 mmol/L (3.5-5.0); TOTAL PROTEIN 5.6 g/dL (6.7-8.2)
[2021-08-25 12:12] LABS: BILIRUBIN,URINE NEGATIVE (NEGATIVE); GLUCOSE, URINE (UA) NEGATIVE (NEGATIVE); KETONES,URINE (UA) NEGATIVE (NEGATIVE); LEUKOCYTE ESTERASE, URINE NEGATIVE (NEGATIVE); NITRITE,URINE NEGATIVE (NEGATIVE); OCCULT BLOOD,URINE NEGATIVE (NEGATIVE); PH,URINE 8.5 PH (5.0-7.5); PROTEIN,URINE TRACE mg/dL (NEGATIVE); UROBILINOGEN,URINE 0.2 (NORMAL) E.U./dL (NORMAL)
[2021-08-25 12:13] LABS: INR 5.9 (0.8-1.2)
--- NOTE | 2021-08-25 12:13 | ED Physician Documentation ---
History of Present Illness - Stated complaint Stated Complaint: FEMALE - Chief complaint Chief Complaint: UTI - Additonal information Additional information: 80-year-old female who has a history of atrial fibrillation anticoagulated on Coumadin as well as extensive psoriasis presents the emergency department for reevaluation of generalized weakness and fatigue. She has had low-grade temperature elevations up to 101 at home over the last week. She was seen at a local walk-in clinic on 21 August and thought to have a urinary tract infection. She was started on Keflex. Despite this her symptoms have not improved. The urine culture subsequently grew polymicrobial growth without findings of acute infection. Patient's reports that she has been out of her metoprolol for the last 4 days but despite this she has not had any blood pressure elevations. Review of Systems Constitutional: reports: Fever, Myalgias, Fatigue Eyes: reports: Reviewed and negative Cardiac: denies: Chest pain / pressure, Palpitations, Pedal edema Respiratory: denies: Dyspnea, Cough, Hemoptysis GI: denies: Abdominal Pain, Nausea, Vomiting : denies: Frequency, Hesitancy Skin: reports: Other (Extensive body psoriasis) Musculoskeletal: denies: Neck pain, Back pain Neurologic: reports: Generalized weakness. 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 implants HEENT: Tonsil/Adenoidectomy - Present Medications Home Medications: Ambulatory Orders Medication Instructions Recorded Confirmed Estradiol 0.05 mg Patch [Climara 03/14/15 07/16/15 0.05 mg] Sotalol [Betapace] 80 mg PO DAILY 07/16/15 07/16/15 Metoprolol Tartrate [Lopressor] 75 mg PO BID 30 Days #180 tablet 08/25/21 Propylene Glycol/Peg 400 15 ml OP BID #1 bottle 08/25/21 [Lubricant 0.3%-0.4% Eye Drops] - Allergies Allergies/Adverse Reactions: Allergies Allergy/AdvReac Type Severity Reaction Status Date / Time amlodipine Allergy Unknown Verified 08/25/21 11:05 - Social History Does the pt smoke?: No Smoking Status: Never smoker Does the pt drink ETOH?: No Does the pt have substance abuse?: No - Immunizations Immunizations are current?: Yes Immunizations: TDAP >10years/unknown - POLST Patient has POLST: No PD ED PE EXPANDED - General General: Alert, No acute distress, Other (thin appearance) - Cardiac Cardiac: Regular Rate, Radial strong equal, Pedal strong equal, Cap refill < 2 sec. No: Murmur Present - Respiratory Respiratory: Clear to ausultation ernie. No: Distress, Labored - Abdomen Abdomen: Normal Bowel sounds. No: Tender to palpation - Back Back: Normal exam - Derm Derm: Rash (Diffuse erythematous scaling skin from her head to her toes. Some minor sparing on the soles of her feet. No intraoral lesions.) Results - Vitals Vitals: Vital Signs - 24 hr 08/25/21 08/25/21 11:00 12:35 Temperature 37.2 C Heart Rate 60 120 H Respiratory 18 23 Rate Blood Pressure 94/46 L 119/77 O2 Saturation 95 96 Oxygen O2 Source Room air - EKG (time done) 1217 Rate: Rate (enter#) (106) Rhythm: Atrial fibrillation [place]: Normal Intervals: Normal CT QRS: Normal Ischemia: Non specific changes Compare to prior EKG: Changed from prior EKG (now a-fib) Computer interpretation: Agree with computer - Labs Labs: Laboratory Tests 08/25/21 08/25/21 08/25/21 11:42 11:42 11:42 WBC 11.7 H RBC 3.37 L Hgb 9.7 L Hct 30.8 L MCV 91.4 MCH 28.8 MCHC 31.5 L RDW 16.0 H Plt Count 376 MPV 8.8 Neut # (Auto) 9.3 H Lymph # (Auto) 1.3 L [place] # (Auto) 0.6 Eos # (Auto) 0.4 Baso # (Auto) 0.0 Absolute Nucleated RBC 0.00 Nucleated RBC % 0.0 PT 65.6 H INR 5.9 H* Sodium 137 Potassium 3.9 Chloride 101 Carbon Dioxide 26 Anion Gap 10.0 BUN 17 Creatinine 0.7 Estimated GFR (MDRD) 80 L Glucose 95 Lactic Acid Calcium 8.0 L Total Bilirubin 0.5 AST 44 H ALT 33 Alkaline Phosphatase 132 H Total Protein 5.6 L Albumin 2.3 L Globulin 3.3 Albumin/Globulin Ratio 0.7 L Lipase 19 L Urine Color Urine Clarity Urine pH Ur Specific [place] Urine Protein Urine Glucose (UA) Urine Ketones Urine Occult Blood Urine Nitrite Urine Bilirubin Urine Urobilinogen Ur Leukocyte Esterase Ur Microscopic Review Urine Culture Comments 08/25/21 08/25/21 11:47 12:03 WBC RBC Hgb Hct MCV MCH MCHC RDW Plt Count MPV Neut # (Auto) Lymph # (Auto) [place] # (Auto) Eos # (Auto) Baso # (Auto) Absolute Nucleated RBC Nucleated RBC % PT INR Sodium Potassium Chloride Carbon Dioxide Anion Gap BUN Creatinine Estimated GFR (MDRD) Glucose Lactic Acid 1.4 Calcium Total Bilirubin AST ALT Alkaline Phosphatase Total Protein Albumin Globulin Albumin/Globulin Ratio Lipase Urine Color YELLOW Urine Clarity CLEAR Urine pH 8.5 H Ur Specific [place] 1.015 Urine Protein TRACE Urine Glucose (UA) NEGATIVE Urine Ketones NEGATIVE Urine Occult Blood NEGATIVE Urine Nitrite NEGATIVE Urine Bilirubin NEGATIVE Urine Urobilinogen 0.2 (NORMAL) Ur Leukocyte Esterase NEGATIVE Ur Microscopic Review NOT INDICATED Urine Culture Comments NOT INDICATED PD MEDICAL DECISION MAKING - ED course Complexity details: reviewed results, re-evaluated patient, considered differential, d/w patient ED course: 80-year-old Female is brought to the emergency department for reevaluation of generalized fatigue and weakness. Has a history of psoriasis as well as atrial fibrillation. She has been out of her metoprolol for about 4 days. Seen at a local walk-in clinic on 21 August diagnosed with a urinary tract infection however subsequent urine cultures were negative. Today patient screening labs show no significant abnormalities. No leukocytosis. Urine catheterization shows no infection. Chest x-ray is without acute focal opacity. While here in the emergency department she developed atrial fibrillation with a rate of 150-1 60. She was given her typical dose of metoprolol with resultant decrease in her heart rate to 100. Denies CP or shortness of air. Her work-up does not reveal an obvious cause for her weakness and fatigue. I have advised her to discontinue the Keflex as there is no infection in the urine. I will write her prescription refill for the metoprolol. She is also requesting lubricating eyedrops as her psoriasis often cause flaking in her eyes. Patient is to continue follow-up with her primary care doctor emergent return precautions otherwise discussed. Departure - Departure Disposition: 01 Home, Self Care Clinical Impression: Generalized weakness, Prescription refill Atrial fibrillation Qualifiers: Atrial fibrillation type: paroxysmal Qualified Code(s): I48.0 - Paroxysmal atrial fibrillation Condition: Stable Record reviewed to determine appropriate education?: Yes Prescriptions: Metoprolol Tartrate [Lopressor] 75 mg PO BID 30 Days #180 tablet Propylene Glycol/Peg 400 [Lubricant 0.3%-0.4% Eye Drops] 15 ml OP BID #1 bottle Comments: Belen mendez are seen in the emergency department today for feeling generally unwell weak and fatigued. Your screening labs, chest x-ray and urine do not show any signs of infection. You can stop taking the cephalexin that you were prescribed a number of days ago. There is no infection in the urine. While here in the emergency department you did have short run of atrial fibrillation with a rapid rate. We did give you your typical dose of metoprolol which seemed to reduce your heart rate. I am going to refill this prescription but moving forward it is important that your primary doctor write for refills. If at any point you feel that your symptoms are worsening, you have chest pain, shortness of air, fevers greater than 103, sudden severe abdominal pain nausea or vomiting then please return immediately to the ER for a second evaluation. I have sent a prescription for the metoprolol as well as the lubricating eyedrops to the [facility] in [place].
[2021-08-25 12:18] LABS: CLARITY,URINE CLEAR (CLEAR)
[2021-08-25] MEDS ORDERED: METOPROLOL TARTRATE 50 MG TABLET PO STA (12:49)
--- NOTE | 2021-08-25 13:05 | XRAY Report ---
PROCEDURE: Chest 1 View X-Ray INDICATIONS: chest pain TECHNIQUE: One view of the chest was acquired. COMPARISON: 07/05/2021 FINDINGS: Surgical changes and devices: None. Lungs and pleura: No pleural effusions or pneumothorax. Lungs are clear. Mediastinum: Mediastinal contours appear normal. Heart size is normal. Bones and chest wall: No suspicious bony lesions. Overlying soft tissues appear unremarkable. Bila teral breast prosthesis noted. IMPRESSION: No acute cardiopulmonary findings Reviewed by: Augustine Leahy MD on 08/25/2021 12:04 PM [place] Approved by: Augustine Leahy MD on 08/25/2021 12:04 PM [place] Station ID: [id number]
[2021-08-25 13:55] VITALS: BP 132/66
== END 2021-08-25 14:37 | disposition home or self-care (01) ==
LOC: ED 11:01
DX: R53.1 Weakness (principal); I48.0 Paroxysmal atrial fibrillation; Z76.0 Encounter for issue of repeat prescription; Z20.822 Contact with and (suspected) exposure to COVID-19
CPT/HCPCS: 36415; 51701; 71045; 80053; 81003; 83605; 83690; 85025; 85610; 93005; 99284; A9270; U0004; 81001; 87086

== ENCOUNTER 2021-09-02 10:03 | Outpatient (CLI) | payer MEDICARE | END 2021-09-02 10:04 | disposition home or self-care (01) | LOC: LAB.S 10:03 | PROVIDERS: ATTEND Internal Medicine | DX: Z79.01 Long term (current) use of anticoagulants (principal) | CPT/HCPCS: 36416; 85610 ==

== ENCOUNTER 2021-09-07 15:26 | Outpatient (CLI) | payer MEDICARE | END 2021-09-07 15:27 | disposition home or self-care (01) | LOC: LAB.S 15:26 | PROVIDERS: ATTEND Internal Medicine | DX: Z79.01 Long term (current) use of anticoagulants (principal) | CPT/HCPCS: 36416; 85610 ==

== ENCOUNTER 2021-09-10 08:00 | Outpatient (CLI) | payer MEDICARE | END 2021-09-10 23:59 | disposition home or self-care (01) | LOC: LAB.S 08:00 | PROVIDERS: ATTEND Physician Assistant | DX: N39.41 Urge incontinence (principal); R30.0 Dysuria | CPT/HCPCS: 87086 ==

== ENCOUNTER 2021-09-16 10:26 | Outpatient (CLI) | payer MEDICARE | END 2021-09-16 10:27 | disposition home or self-care (01) | LOC: LAB.S 10:26 | PROVIDERS: ATTEND Internal Medicine | DX: Z79.01 Long term (current) use of anticoagulants (principal) | CPT/HCPCS: 36416; 85610 ==

== ENCOUNTER 2021-09-18 10:32 | Outpatient (CLI) | payer MEDICARE | END 2021-09-18 10:33 | disposition home or self-care (01) | LOC: LAB.S 10:32 | PROVIDERS: ATTEND Nurse Practitioner Family | DX: Z79.899 Other long term (current) drug therapy (principal) | CPT/HCPCS: 36416; 80158; 81599; 85610 ==

== ENCOUNTER 2021-09-22 10:32 | Outpatient (CLI) | payer MEDICARE | END 2021-09-22 10:33 | disposition home or self-care (01) | LOC: LAB.S 10:32 | PROVIDERS: ATTEND Internal Medicine | DX: Z79.01 Long term (current) use of anticoagulants (principal) | CPT/HCPCS: 36416; 85610 ==

== ENCOUNTER 2021-09-30 12:25 | Outpatient (CLI) | payer MEDICARE | END 2021-09-30 12:26 | disposition home or self-care (01) | LOC: LAB.S 12:25 | PROVIDERS: ATTEND Internal Medicine | DX: Z79.01 Long term (current) use of anticoagulants (principal) | CPT/HCPCS: 36416; 85610 ==

== ENCOUNTER 2021-10-05 11:10 | Outpatient (CLI) | payer MEDICARE | END 2021-10-05 11:11 | disposition home or self-care (01) | LOC: LAB.S 11:10 | PROVIDERS: ATTEND Internal Medicine | DX: Z79.01 Long term (current) use of anticoagulants (principal) | CPT/HCPCS: 36416; 85610 ==

== ENCOUNTER 2021-10-14 13:39 | Outpatient (CLI) | payer MEDICARE, OTHER | END 2021-10-14 13:40 | disposition home or self-care (01) | LOC: LAB.S 13:39 | PROVIDERS: ATTEND Internal Medicine | DX: Z79.01 Long term (current) use of anticoagulants (principal) | CPT/HCPCS: 36416; 85610 ==

== ENCOUNTER 2021-10-22 09:56 | Outpatient (CLI) | payer MEDICARE | END 2021-10-22 09:57 | disposition home or self-care (01) | LOC: LAB.S 09:56 | PROVIDERS: ATTEND Internal Medicine | DX: Z79.01 Long term (current) use of anticoagulants (principal) | CPT/HCPCS: 36416; 85610 ==

== ENCOUNTER 2021-11-02 09:42 | Outpatient (CLI) | payer MEDICARE | END 2021-11-02 09:43 | disposition home or self-care (01) | LOC: LAB.S 09:42 | PROVIDERS: ATTEND Internal Medicine | DX: Z79.01 Long term (current) use of anticoagulants (principal) | CPT/HCPCS: 36416; 85610 ==

== ENCOUNTER 2021-12-07 10:36 | Outpatient (CLI) | payer MEDICARE | END 2021-12-07 10:37 | disposition home or self-care (01) | LOC: LAB.S 10:36 | PROVIDERS: ATTEND Internal Medicine | DX: Z79.01 Long term (current) use of anticoagulants (principal) | CPT/HCPCS: 36416; 85610 ==

== ENCOUNTER 2021-12-28 11:43 | Outpatient (CLI) | payer MEDICARE | END 2021-12-28 11:44 | disposition home or self-care (01) | LOC: LAB.S 11:43 | PROVIDERS: ATTEND Internal Medicine | DX: Z79.01 Long term (current) use of anticoagulants (principal) | CPT/HCPCS: 85610 ==

== ENCOUNTER 2022-02-24 10:36 | Outpatient (CLI) | payer MEDICARE | END 2022-02-24 10:37 | disposition home or self-care (01) | LOC: LAB.S 10:36 | PROVIDERS: ATTEND Internal Medicine | DX: Z79.01 Long term (current) use of anticoagulants (principal) | CPT/HCPCS: 36416; 85610 ==

== ENCOUNTER 2022-03-24 10:38 | Outpatient (CLI) | payer MEDICARE | END 2022-03-24 10:39 | disposition home or self-care (01) | LOC: LAB.S 10:38 | PROVIDERS: ATTEND Internal Medicine | DX: Z79.01 Long term (current) use of anticoagulants (principal) | CPT/HCPCS: 36416; 85610 ==

== ENCOUNTER 2022-04-30 18:32 | Emergency (ER) | payer MEDICARE ==
[2022-04-30] MEDS ORDERED: TETANUS/DIPHTHERIA/PERTUSSIS 0.5 ML SYRINGE IM ONE (18:53)
--- NOTE | 2022-04-30 18:54 | ED Physician Documentation ---
PD HPI HEAD INJURY - Stated complaint Stated Complaint: HEAD LAC/GLF - Chief complaint Chief Complaint: Trauma Hd/Nk - History obtained from History obtained from: Patient, Family - Additional information Additional information: 81-year-old woman on warfarin for A. fib had a trip and fall in her house today. She caught her fall partially but then hit her right forehead on the ground with a laceration on the forehead. No other injuries. Tetanus status is unknown. Supportive at the bedside. 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 implants HEENT: Tonsil/Adenoidectomy - Present Medications Home Medications: Ambulatory Orders Medication Instructions Recorded Confirmed Estradiol 0.05 mg Patch [Climara 03/14/15 07/16/15 0.05 mg] Sotalol [Betapace] 80 mg PO DAILY 07/16/15 07/16/15 Metoprolol Succinate [Toprol Xl] 75 mg PO BID 30 Days #180 tablet 08/25/21 Propylene Glycol/Peg 400 15 ml OP BID #1 bottle 08/25/21 [Lubricant 0.3%-0.4% Eye Drops] HYDROcod/ACETAM 5/325 [[place] 5/325] 1 - 2 tab PO Q6H PRN #15 tablet 04/30/22 - Allergies Allergies/Adverse Reactions: Allergies Allergy/AdvReac Type Severity Reaction Status Date / Time amlodipine Allergy Unknown Verified 04/30/22 18:47 - Social History Does the pt smoke?: No Smoking Status: Never smoker Does the pt drink ETOH?: No Does the pt have substance abuse?: No - Immunizations Immunizations are current?: Yes Immunizations: TDAP >10years/unknown - POLST Patient has POLST: No PD ED PE NORMAL - Vitals Vital signs reviewed: Yes - General General: Alert and oriented X 3, No acute distress - HEENT HEENT: PERRL, EOMI, Other (1 cm shallow skin tear Right mosque She is quite tender and swollen to the right infraorbital area.) - Neck Neck: Supple, no meningeal sign, No bony TTP - Extremities Extremities: Other (She has a little bruise on the posteromedial proximal right forearm but without tenderness or limited range of motion.) - Neuro Neuro: Alert and oriented X 3, Normal speech Eye Opening: Spontaneous Motor: Obeys Commands Verbal: Oriented GCS Score: 15 - Psych Psych: Normal mood, Normal affect Results - Vitals Vitals: Vital Signs - 24 hr 04/30/22 04/30/22 04/30/22 18:44 20:03 21:39 Temperature 36.8 C Heart Rate 58 L 55 L Respiratory 20 18 18 Rate Blood Pressure 216/89 H 188/64 H 203/65 H O2 Saturation 98 99 97 Oxygen O2 Source Room air - Labs Labs: Laboratory Tests 04/30/22 04/30/22 04/30/22 19:00 19:00 19:18 WBC 16.1 H RBC 4.57 Hgb 14.6 Hct 43.1 MCV 94.3 MCH 31.9 H MCHC 33.9 RDW 12.6 Plt Count 259 MPV 9.9 Neut # (Auto) 14.0 H Lymph # (Auto) 1.4 L [place] # (Auto) 0.6 Eos # (Auto) 0.0 Baso # (Auto) 0.0 Absolute Nucleated RBC 0.00 Nucleated RBC % 0.0 PT 30.7 H INR 2.9 H Sodium 137 Potassium 4.1 Chloride 102 Carbon Dioxide 25 Anion Gap 10.0 BUN 33 H Creatinine 0.9 Estimated GFR (MDRD) 60 L Glucose 138 H Calcium 9.9 Procedures - Laceration (location) right forehed Length in cm: 2 Wound type: Linear, Superficial Wound preparation: Irrigated copiously NS Skin layer closure: Dermabond Other: Tetanus booster given PD MEDICAL DECISION MAKING - ED course ED course: 81-year-old woman on warfarin presented by the front door for a fall hitting her head and she has pretty significant edema and swelling around the right eye which is her good eye given that she is blind in the left eye from prior melanoma and surgery there. She was called a modified trauma from the waiting room and attended to immediately. Her INR is 2.9. CT of the head, face, and cervical spine demonstrate the incidental finding of a thyroid nodule which was discussed with the patient and her but also the inferior right orbital fracture. She had a right temporal shallow laceration that was closed with glue and referred to facial surgery. She was given no nose blowing precautions. Departure - Departure Disposition: 01 Home, Self Care Clinical Impression: Adequate anticoagulation on anticoagulant therapy Head injury Qualifiers: Encounter type: initial encounter Qualified Code(s): S09.90XA - Unspecified injury of head, initial encounter Orbital fracture Qualifiers: Encounter type: initial encounter Fracture type: closed Qualified Code(s): S02.85XA - Fracture of orbit, unspecified, initial encounter for closed fracture Facial laceration Qualifiers: Encounter type: initial encounter Qualified Code(s): S01.81XA - Laceration without foreign body of other part of head, initial encounter Condition: Good Record reviewed to determine appropriate education?: Yes Instructions: ED Fx Face, ED Head Injury Closed, ED Laceration Facial Skin Glue Follow-Up: PATRICE AYALA [Physician No Access] - Prescriptions: HYDROcod/ACETAM 5/325 [[place] 5/325] 1 - 2 tab PO Q6H PRN #15 tablet PRN Reason: Pain Comments: I sent your prescription to [facility] in [place]. As discussed, the brain looks okay, your INR tonight is 2.9 which is within range, but we did see a hairline fracture in the bottom of your right orbit, and there is also a thyroid nodule. For the hairline fracture you should follow-up with Dr. Ayala. He is office will likely contact you. But you can call Tuesday or Tuesday if you have not heard from him. As discussed, you should not blow your nose until he clears you for that. For the wound on your forehead, washing with soap and water is all you need to do. Follow-up with your primary care physician and mention the small thyroid nodule which may need follow-up as well. I am prescribing a short course of narcotic pain medication for you. These are potentially dangerous and addictive medications that should be used carefully. These medications may constipate you. Take an fhlf-fpa-ivszahv stool softener (docusate) twice daily with plenty of water while taking these medications. If you go 24 hours without a bowel movement, take [id number] miralax, per package instructions. Do not drink or drive while taking these medications. If you received narcotic or sedating medications while in the emergency department, do not drive for 24 hours. Store this medication in a safe, secure place and out of reach of children. It is a violation of federal law to give or sell this medication to another person or to use in a manner other than prescribed. The ED will not refill narcotic prescriptions, including prescriptions lost or stolen. To dispose of unwanted medications: 1. [facility] at [address] in [place] has a medication drop box. They accept prescription medications (in pill form) Tuesday through Tuesday 9:00 a.m. to 5:00 p.m. 2. The [facility] accepts prescription medications (in pill form only) for disposal year round. Call for more information. 3. Contact the [facility] for the next [facility] sponsored prescription drug collection event. , [phone], or [phone]; Note that many narcotic pain relievers also contain Tylenol/acetaminophen. Please ensure that your total dose of acetaminophen from all sources does not exceed 3 g (3000 mg) per day. Discharge Date/Time: 04/30/22 21:39
[2022-04-30 19:09] LABS: BASOPHILS % (AUTO) 0.1 %; HCT - HEMATOCRIT 43.1 % (37.0-47.0); HGB - HEMOGLOBIN 14.6 g/dL (12.0-16.0); LYMPHOCYTES # (AUTO) 1.4 10^3/uL (1.5-3.5); LYMPHOCYTES % (AUTO) 8.8 %; MEAN CORPUSCULAR HEMOGLOBIN 31.9 pg (27.0-31.0); MEAN CORPUSCULAR HGB CONC 33.9 g/dL (32.0-36.0); MEAN CORPUSCULAR VOLUME 94.3 fL (81.0-99.0); MEAN PLATELET VOLUME 9.9 fL (7.9-10.8); MONOCYTES # (AUTO) 0.6 10^3/uL (0.0-1.0); MONOCYTES % (AUTO) 3.9 %; NEUTROPHILS % (AUTO) 86.9 %; PLT - PLATELET COUNT 259 10^3/uL (130-450); RED BLOOD COUNT 4.57 10^6/uL (4.20-5.40); RED CELL DISTRIBUTION WIDTH 12.6 % (12.0-15.0); WHITE BLOOD COUNT 16.1 x10^3/uL (4.8-10.8)
[2022-04-30] MEDS ORDERED: HYDROcod/ACETAM 5/325 MG TABLET PO STA (19:12)
[2022-04-30 19:17] LABS: CALCIUM 9.9 mg/dL (8.5-10.3); CREATININE 0.9 mg/dL (0.4-1.0); POTASSIUM 4.1 mmol/L (3.5-5.0)
[2022-04-30 19:30] LABS: INR 2.9 (0.8-1.2); PT - PROTHROMBIN TIME 30.7 secs (9.9-12.6)
--- NOTE | 2022-04-30 20:43 | CT Report ---
PROCEDURE: HEAD WO INDICATIONS: head inj TECHNIQUE: Noncontrast 4.5 mm thick angled axial sections acquired from the foramen magnum to the vertex. For r adiation dose reduction, the following was used: automated exposure control, adjustment of mA and/or kV according to patient size. COMPARISON: CT head 07/15/2013. Concurrent maxillofacial CT. FINDINGS: Image quality: Excellent. CSF spaces: There is mild cerebral volume loss with prominence of the ventricles and sulci as well a s the frontal extra axial spaces. A small region of ex vacuo dilatation along the left lateral ventri dawood superiorly appears unchanged. Basal cisterns are patent. No extra-axial fluid collections. Brain: No intracranial hemorrhage, mass, or mass effect. Soliman-white matter interface is preserved. T here are subcortical and periventricular white matter hypodensities consistent with mild chronic smal l vessel ischemic changes. Skull and face: Calvarium and visualized facial bones appear intact. There is lateral right periorb ital soft tissue swelling. The globes are intact. There are 2 metallic foreign bodies along the media l aspect of the left lobe. Sinuses: Visualized sinuses and mastoids are clear. IMPRESSION: 1. No acute intracranial abnormality. 2. Mild cerebral volume loss and chronic white matter small vessel ischemic changes. Reviewed by: Meliton Dickerson MD on 04/30/2022 8:41 PM PDT Approved by: Meliton Dickerson MD on 04/30/2022 8:41 PM PDT Station ID: [id number]
--- NOTE | 2022-04-30 20:48 | CT Report ---
PROCEDURE: MAXILLOFACIAL WO INDICATIONS: facial inj TECHNIQUE: Noncontrast 1.5 mm thick axial images acquired from the mandible through the frontal sinuses, with co jose ramon and sagittal reformatting. For radiation dose reduction, the following was used: automated ex posure control, adjustment of mA and/or kV according to patient size. COMPARISON: Concurrent CT head. FINDINGS: Image quality: Excellent. Bones and teeth: There is a minimally displaced fracture of the inferior wall of the right orbit inv olving the infraorbital foramen. No herniation of orbital contents. Nasal bones and septum are intact . Visualized portions of the mandible demonstrate no fractures or subluxation. Zygomatic arches are intact. Pterygoid plates are intact. Visualized portions of the skull base and auditory canals are intact. Sinuses: Paranasal sinuses demonstrate a small air-fluid level in the right maxillary sinus which ma y reflect sequelae of the orbital floor fracture or acute sinusitis. There is mild mucosal thickening also demonstrated within the axillary and ethmoid sinuses. The mastoid air cells are clear. Soft tissues: There is lateral right periorbital soft tissue swelling with a subcutaneous hematoma. T he globes are intact. There are 3 metallic foreign bodies along the medial aspect of the left lobe as well as 2 small foci of calcifications. Vascular: Visualized vascular structures appear normal in the absence of contrast. Bony vascular fo ramina and canals are intact. IMPRESSION: 1. Minimally displaced fracture of the inferior wall of the right orbit. Fracture involves the infrao rbital foramen. No herniation of orbital contents. 2. Right periorbital soft tissue swelling and small subcutaneous hematoma. 3. Globes are intact. Multiple metallic foreign bodies are demonstrated along the medial aspect of th e left globe suggestive of postsurgical changes. Correlation is recommended with clinical history. Reviewed by: Meliton Dickerson MD on 04/30/2022 8:47 PM PDT Approved by: Meliton Dickerson MD on 04/30/2022 8:47 PM PDT Station ID: [id number]
--- NOTE | 2022-04-30 20:51 | CT Report ---
PROCEDURE: CERVICAL SPINE WO INDICATIONS: head injury TECHNIQUE: Noncontrast 3 mm thick sections acquired from the skull base to the T4 level. Sagittal and coronal r eformats were then constructed. For radiation dose reduction, the following was used: automated exp osure control, adjustment of mA and/or kV according to patient size. COMPARISON: None. FINDINGS: Image quality: Excellent. Bones: No fractures or subluxation. There is straightening of the cervical lordosis. Multilevel dege nerative disc disease and facet joint arthropathy are present including severe degenerative disc dise ase at C5-C6. There is also severe multilevel right-sided facet arthropathy within the mid cervical s pine. Visualized superior ribs are intact. Soft tissues: Prevertebral soft tissues are normal in thickness. No paravertebral hematomas. No ap ical pneumothoraces. There is scarring in the lung apices. There is is an indistinct hypoattenuating nodule within the left thyroid lobe measuring up to 1.3 cm. IMPRESSION: 1. No acute fracture or subluxation in the cervical spine. 2. Multilevel degenerative changes. 3. Left thyroid nodule measuring up to 1.3 cm. Reviewed by: Meliton Dickerson MD on 04/30/2022 8:50 PM PDT Approved by: Meliton Dickerson MD on 04/30/2022 8:50 PM PDT Station ID: [id number]
[2022-04-30] MEDS ORDERED: HYDROcod/ACET 5/325 Prepack 4 PO STA (21:07)
[2022-04-30 21:40] VITALS: BP 203/65
== END 2022-04-30 21:39 | disposition home or self-care (01) ==
LOC: ED 18:32
DX: S01.81XA Laceration without foreign body of other part of head, initial encounter (principal); S02.31XA Fracture of orbital floor, right side, initial encounter for closed fracture; S09.90XA Unspecified injury of head, initial encounter; W01.198A Fall on same level from slipping, tripping and stumbling with subsequent striking against other object, initial encounter; Y92.009 Unspecified place in unspecified non-institutional (private) residence as the place of occurrence of the external cause; E04.1 Nontoxic single thyroid nodule; Z79.01 Long term (current) use of anticoagulants
CPT/HCPCS: 12011; 36415; 70450; 70486; 72125; 80048; 85025; 85610; 90471; 90715; 99283; 99284; A9270

== ENCOUNTER 2022-05-01 16:28 | Outpatient (CLI) | payer MEDICARE | END 2022-05-01 16:29 | disposition EMS.NT | LOC: EMS 16:28 | DX: T81.33XA Disruption of traumatic injury wound repair, initial encounter (principal); R58 Hemorrhage, not elsewhere classified ==

== ENCOUNTER 2022-05-01 17:40 | Emergency (ER) | payer MEDICARE ==
[2022-05-01 17:46] VITALS: BP 160/100
--- NOTE | 2022-05-01 18:03 | ED Physician Documentation ---
PD HPI HEADACHE - Stated complaint Stated Complaint: HEAD INJ - Chief complaint Chief Complaint: Trauma Hd/Nk - History obtained from History obtained from: Patient, Family - History of Present Illness Timing - onset: Today (81-year-old woman I saw last night after fall with head injury. She had a minor facial fracture and a lot of swelling and a laceration on the right roman catholic. She was doing well, but she started having profuse bleeding from the laceration. No significant headaches. 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 HEENT: Tonsil/Adenoidectomy - Present Medications Home Medications: Ambulatory Orders Medication Instructions Recorded Confirmed Estradiol 0.05 mg Patch [Climara 03/14/15 07/16/15 0.05 mg] Sotalol [Betapace] 80 mg PO DAILY 07/16/15 07/16/15 Metoprolol Succinate [Toprol Xl] 75 mg PO BID 30 Days #180 tablet 08/25/21 Propylene Glycol/Peg 400 15 ml OP BID #1 bottle 08/25/21 [Lubricant 0.3%-0.4% Eye Drops] HYDROcod/ACETAM 5/325 [[place] 5/325] 1 - 2 tab PO Q6H PRN #15 tablet 04/30/22 - Allergies Allergies/Adverse Reactions: Allergies Allergy/AdvReac Type Severity Reaction Status Date / Time amlodipine Allergy Unknown Verified 05/01/22 17:44 - Social History Does the pt smoke?: No Smoking Status: Never smoker Does the pt drink ETOH?: No Does the pt have substance abuse?: No - Immunizations Immunizations are current?: Yes Immunizations: TDAP >10years/unknown - POLST Patient has POLST: No PD ED PE NORMAL - Vitals Vital signs reviewed: Yes - General General: Alert and oriented X 3, No acute distress - HEENT HEENT: PERRL, EOMI, Other (She is significant periorbital edema and ecchymosis on the right tracking down towards the jaw now. She is still able to open the right eye but not fully. The laceration over the right roman catholic has a lot of blood around it with glue in place.) - Neck Neck: Supple, no meningeal sign, No bony TTP - Neuro Neuro: Alert and oriented X 3, Normal speech - Psych Psych: Normal mood, Normal affect Results - Vitals Vitals: Vital Signs - 24 hr 05/01/22 17:44 Temperature 36.5 C Heart Rate 63 Respiratory 18 Rate Blood Pressure 160/100 H O2 Saturation 96 Oxygen O2 Source Room air - Labs Labs: Laboratory Tests 05/01/22 18:16 INR (Fingerstick) 2.8 H Procedures - Laceration (location) R roman catholic Length in cm: 2 Wound type: Linear Wound preparation: Other (The glue over the right roman catholic was removed and she was locally infiltrated with lidocaine and prepped with Hibiclens. The wound was reirrigated and there was clot that was expressed.) Skin layer closure: Nylon (Running 5-0 nylon) PD MEDICAL DECISION MAKING - ED course ED course: 81-year-old woman with recurrent bleeding from a laceration on her roman catholic. It was bleeding fairly heavily so her INR was rechecked and about the same, the glue was removed and it was prepped and draped and infiltrated with lidocaine and then a running suture was placed with hemostasis. Departure - Departure Disposition: 01 Home, Self Care Clinical Impression: Adequate anticoagulation on anticoagulant therapy, Facial laceration Orbital fracture Qualifiers: Encounter type: subsequent encounter Fracture type: closed Fracture healing: with routine healing Qualified Code(s): S02.85XD - Fracture of orbit, unspecified, subsequent encounter for fracture with routine healing Condition: Good Instructions: ED Laceration Facial Sutr Tape Comments: Skip your dose of warfarin tonight, your INR was 2.9 yesterday, 2.8 today. Reasonable to let it drift down a bit. Return for new or worsening symptoms. Continue the plan for follow-up with the facial fracture specialist as outlined on your discharge instructions from yesterday. Come back for any signs of infection which would include: Redness, swelling, drainage, increased pain, or fevers. You can wash it soap and water. Keep it covered and moist with bacitracin ointment which is available over the counter; avoid neosporin. Follow-up with your physician in About 9 days for suture removal. Discharge Date/Time: 05/01/22 18:51
== END 2022-05-01 18:51 | disposition home or self-care (01) ==
LOC: ED 17:40
DX: S02.85XA Fracture of orbit, unspecified, initial encounter for closed fracture (principal); S01.81XA Laceration without foreign body of other part of head, initial encounter; W19.XXXA Unspecified fall, initial encounter; Z79.01 Long term (current) use of anticoagulants
CPT/HCPCS: 12011; 85610; 99282; 99283

== ENCOUNTER 2022-05-06 09:31 | Emergency (ER) | payer MEDICARE ==
[2022-05-06] MEDS ORDERED: SODIUM CHLORIDE 0.9% 500 ML IV STA (10:05)
[2022-05-06] MEDS ORDERED: MORPHINE 2 MG/ML CARPUJECT IVP STA (10:05)
[2022-05-06 10:18] LABS: BASOPHILS % (AUTO) 0.1 %; EOSINOPHILS # (AUTO) 0.3 10^3/uL (0.0-0.7); EOSINOPHILS % (AUTO) 2.4 %; HCT - HEMATOCRIT 44.7 % (37.0-47.0); LYMPHOCYTES # (AUTO) 2.4 10^3/uL (1.5-3.5); LYMPHOCYTES % (AUTO) 19.2 %; MEAN CORPUSCULAR HEMOGLOBIN 31.8 pg (27.0-31.0); MEAN CORPUSCULAR HGB CONC 33.6 g/dL (32.0-36.0); MEAN CORPUSCULAR VOLUME 94.7 fL (81.0-99.0); MEAN PLATELET VOLUME 9.9 fL (7.9-10.8); MONOCYTES # (AUTO) 0.8 10^3/uL (0.0-1.0); MONOCYTES % (AUTO) 6.4 %; NEUTROPHILS # (AUTO) 8.8 10^3/uL (1.5-6.6); NEUTROPHILS % (AUTO) 71.7 %; PLT - PLATELET COUNT 289 10^3/uL (130-450); RED BLOOD COUNT 4.72 10^6/uL (4.20-5.40); RED CELL DISTRIBUTION WIDTH 12.4 % (12.0-15.0); WHITE BLOOD COUNT 12.2 x10^3/uL (4.8-10.8)
--- OUTSIDE RECORDS SUMMARY | 2022-05-06 10:21 | EXTERNAL MEDICAL SUMMARY RPT | Continuity of Care Document ---
:1940 Author Organization [facility] Address [address] [place] [address] Phone Care Team Providers Name Role Phone Unavailable Unavailable Unavailable Afshin Pavon Unavailable Unavailable Allergies No information. Encounters No information. Functional Status No information. Immunizations No information. Medications date description facility [id number]+0000 dupilumab [facility] [id number]+0000 dupilumab [facility] [phone]+0000 adalimumab [facility] [phone]+0000 mupirocin [facility] [id number]+0000 estradiol [facility] [phone]+0000 metoprolol succinate [facility] [phone]+0000 metoprolol succinate [facility] [phone]+0000 clobetasol [facility] [phone]+0000 prednisone [facility] [id number]+0000 calcipotriene [facility] [phone]+0000 ciprofloxacin hcl [facility] [phone]+0000 triamcinolone acetonide [facility] [id number]+0000 hydroxyzine hcl [facility] [id number]+0000 ketoconazole [facility] [id number]+0000 mupirocin [facility] [id number]+0000 hydroxyzine hcl [facility] [id number]+0000 triamcinolone acetonide [facility] [id number]+0000 fluocinolone acetonide oil [facility] [id number]+0000 fluocinolone and shower cap Walk[facility] [phone]+0000 fluocinolone [facility] [phone]+0000 acyclovir [facility] [id number]+0000 valacyclovir [facility] [id number]+0000 fluocinolone [facility] [id number]+0000 fluocinolone and shower cap [facility] [phone]+0000 adalimumab [facility] [id number]+0000 prednisone [facility] [id number]+0000 dupilumab [facility] [id number]+0000 acyclovir [facility] [id number]+0000 amlodipine [facility] [id number]+0000 dupilumab [facility] [id number]+0000 methimazole [facility] [id number]+0000 adalimumab [facility] [id number]+0000 ketoconazole [facility] [id number]+0000 desonide [facility] [phone]+0000 dupilumab [facility] [phone]+0000 triamcinolone acetonide [facility] [id number]+0000 triamcinolone acetonide [facility] [phone]+0000 prednisone [facility] [phone]+0000 dupilumab [facility] [id number]+0000 estradiol [facility] [id number]+0000 estradiol [facility] [id number]+0000 acyclovir [facility] [id number]+0000 amlodipine [facility] [id number]+0000 amlodipine [facility] [id number]+0000 clobetasol [facility] [phone]+0000 desonide [facility] [id number]+0000 ketoconazole [facility] [id number]+0000 ketoconazole [facility] [id number]+0000 methimazole [facility] [id number]+0000 citalopram [facility] [phone]+0000 methimazole [facility] [id number]+0000 mupirocin [facility] [id number]+0000 alprazolam [facility] [id number]+0000 amlodipine [facility] [phone]+0000 calcipotriene [facility] [phone]+0000 ciprofloxacin hcl [facility] [id number]+0000 prednisone [facility] [id number]+0000 valacyclovir [facility] [id number]+0000 calcipotriene [facility] [phone]+0000 metoprolol succinate [facility] [phone]+0000 metoprolol succinate [facility] [id number]+0000 amlodipine [facility] [id number]+0000 amlodipine [facility] [id number]+0000 valacyclovir [facility] [id number]+0000 losartan [facility] [phone]+0000 losartan [facility] [id number]+0000 rosuvastatin [facility] [id number]+0000 losartan [facility] [id number]+0000 losartan [facility] [id number]+0000 calcipotriene [facility] [phone]+0000 calcipotriene [facility] [id number]+0000 triamcinolone acetonide [facility] [id number]+0000 triamcinolone acetonide [facility] [id number]+0000 fluocinonide [facility] [id number]+0000 clobetasol [facility] [phone]+0000 ketoconazole [facility] [id number]+0000 fluocinonide [facility] [phone]+0000 methimazole [facility] [id number]+0000 calcipotriene [facility] [id number]+0000 desonide [facility] [id number]+0000 clobetasol [facility] [id number]+0000 ketoconazole [facility] [phone]+0000 warfarin [facility] [phone]+0000 cyclosporine modified [facility] [phone]+0000 warfarin [facility] [id number]+0000 ciprofloxacin hcl [facility] [id number]+0000 citalopram [facility] [phone]+0000 pimecrolimus [facility] [id number]+0000 alprazolam [facility] [id number]+0000 hydroxyzine hcl [facility] [id number]+0000 citalopram [facility] [id number]+0000 amlodipine [facility] [phone]+0000 amlodipine [facility] [id number]+0000 alprazolam [facility] [phone]+0000 ciprofloxacin hcl [facility] [id number]+0000 acyclovir [facility] [phone]+0000 valacyclovir [facility] [id number]+0000 estradiol [facility] [phone]+0000 fluocinolone acetonide oil [facility] [phone]+0000 fluocinolone and shower cap [facility]-In [facility] [id number]+0000 fluocinolone [facility] [phone]+0000 adalimumab [facility] [phone]+0000 cyclosporine modified [facility] [id number]+0000 clobetasol [facility] [id number]+0000 losartan [facility] [id number]+0000 losartan [facility] [phone]+0000 rosuvastatin [facility] [phone]+0000 pimecrolimus [facility] [phone]+0000 metoprolol succinate [facility] [phone]+0000 metoprolol succinate [facility] [id number]+0000 citalopram [facility] [phone]+0000 [facility] [phone]+0000 warfarin [facility] [id number]+0000 rosuvastatin [facility] [id number]+0000 cyclosporine modified [facility] [id number]+0000 warfarin [facility] [id number]+0000 rosuvastatin [facility] [phone]+0000 clobetasol [facility] [phone]+0000 clobetasol [facility] [id number]+0000 clobetasol [facility] [id number]+0000 clobetasol [facility] [phone]+0000 metoprolol succinate [facility] [phone]+0000 metoprolol succinate [facility] [phone]+0000 fluocinolone acetonide oil [facility] [id number]+0000 mupirocin [facility] [id number]+0000 ketoconazole [facility] [id number]+0000 ketoconazole [facility] [id number]+0000 calcipotriene [facility] [phone]+0000 calcipotriene [facility] [id number]+0000 dupilumab [facility] [id number]+0000 dupilumab [facility] [id number]+0000 clobetasol [facility] [phone]+0000 clobetasol [facility] [phone]+0000 clobetasol [facility] [id number]+0000 desonide [facility] [id number]+0000 fluocinolone [facility] [phone]+0000 fluocinolone and shower cap [facility]-In [facility] [phone]+0000 fluocinonide [facility] [id number]+0000 triamcinolone acetonide [facility] [id number]+0000 triamcinolone acetonide [facility] [phone]+0000 pimecrolimus [facility] [id number]+0000 alprazolam [facility] [phone]+0000 fluocinonide [facility] [phone]+0000 losartan [facility] [id number]+0000 losartan [facility] [place] [id number]+0000 cyclosporine modified [facility] [place] [id number]+0000 fluocinolone acetonide oil [facility] [id number]+0000 hydroxyzine hcl [facility] [place] Problems No information. Procedures date description facility +0000 Visit Code Hold [facility] [place] Results/Labs No information. Social History date description facility +0000 Never smoker [facility] [place] Vital Signs date measurement value units +0000 BMI BMI 17.01 kg/m2 +0000 BP_diastolic BP_diastolic 79 mmHg +0000 BP_systolic BP_systolic 215 mmHg [id number]+0000 heart_rate heart_rate 2 /min +0000 height_metric height_metric 167.64 cm +0000 height_standard height_standard 66 in +0000 respiration_rate respiration_rate 17 /min [id number]+0000 temperature_metric temperature_metric 36.83 C [id number]+0000 temperature_standard temperature_standard 9 8.3 F [id number]+0000 weight_metric weight_metric 47.63 kg [id number]+0000 weight_standard weight_standard 105 lb
[2022-05-06 10:25] LABS: INR 2.2 (0.8-1.2); PT - PROTHROMBIN TIME 23.5 secs (9.9-12.6)
[2022-05-06 10:39] LABS: ALBUMIN 4.4 g/dL (3.2-5.5); ALBUMIN/GLOBULIN RATIO 1.4 (1.0-2.2); BILIRUBIN,TOTAL 1.2 mg/dL (0.2-1.0); CALCIUM 9.7 mg/dL (8.5-10.3); CREATININE 0.7 mg/dL (0.4-1.0); MAGNESIUM 2.4 mg/dL (1.7-2.8); POTASSIUM 3.8 mmol/L (3.5-5.0); TOTAL PROTEIN 7.5 g/dL (6.7-8.2)
[2022-05-06] MEDS ORDERED: ERYTHROMYCIN OPHTH OINT 1 GM TUBE EACHEYE STA (11:02)
[2022-05-06] MEDS ORDERED: DOXYCYCLINE 100 MG TABLET PO STA (11:03)
--- NOTE | 2022-05-06 12:08 | CT Report ---
PROCEDURE: HEAD WO INDICATIONS: recent fall; increased headache recent TECHNIQUE: Noncontrast 4.5 mm thick angled axial sections acquired from the foramen magnum to the vertex. For r adiation dose reduction, the following was used: automated exposure control, adjustment of mA and/or kV according to patient size. COMPARISON: CT head 04/30/2022 FINDINGS: Image quality: Excellent. The ventricular system and cortical sulci demonstrate atrophy, consistent for patient's stated age. There are areas of hypodensity in the periventricular and subcortical white matter. There bilateral low-attenuation frontal extra-axial fluid collections are present. They have been prominent since and are minimally more prominent when compared to prior exam on 04/30/2022. In addition, there is a s ubtle slightly more isodense appearance of the collection when compared to prior exam. No mass lesion or midline shift. Brainstem is unremarkable. Globes are symmetrical. Sinuses are aerated. There is thickening within the visualized inferior right orbital wall fracture. IMPRESSION: Bilateral low-attenuation frontal extra-axial fluid collections appearing slightly more isodense comp ared to Prior exam as well as slightly enlarged in size. Although no hyperdense fluid is identified to indica te acute hemorrhage, the attenuation difference of the collections as well as slight interval increas e raises concern for subacute hemorrhage, possibly related to injury on 04/30/2022. Short interval imag ing CT follow-up in 6 hours is recommended. Reviewed by: Candi Palomo MD on 05/06/2022 12:07 PM PDT Approved by: Candi Palomo MD on 05/06/2022 12:07 PM PDT Station ID: [id number]
[2022-05-06] MEDS ORDERED: KETOROLAC 15 MG/ML VIAL IVP STA (15:01)
--- NOTE | 2022-05-06 15:02 | CT Report ---
PROCEDURE: HEAD WO INDICATIONS: increased extraaxial fluid with repeat CT recommen TECHNIQUE: Noncontrast 4.5 mm thick angled axial sections acquired from the foramen magnum to the vertex. For r adiation dose reduction, the following was used: automated exposure control, adjustment of mA and/or kV according to patient size. COMPARISON: CT head 05/06/2022 FINDINGS: Image quality: Excellent. The ventricular system and cortical sulci demonstrate atrophy, consistent for patient's stated age. There are areas of hypodensity in the periventricular and subcortical white matter. The appearance of low-attenuation bilateral extra-axial fluid collections which had a somewhat more isodense appearanc e compared to prior exam on 04/30/2022 is unchanged from 05/06/2022 at 11:15 AM. No mass lesion or midli ne shift. Brainstem is unremarkable. Globes are symmetrical. Sinuses are aerated. Osseous structures are intact. IMPRESSION: Unchanged appearance of bilateral low-attenuation frontal extra-axial fluid collections compared to p rior exam on 05/06/2022 at 11:15 AM. As previously noted, no hyperdense fluid is present and attenuati on collections could represent slight interval increase related to subacute hemorrhage related to zulema or injury on 04/30/2022. As clinically indicated, further follow-up evaluation is recommended in at [address] 12 to 24 hours. Reviewed by: Candi Palomo MD on 05/06/2022 3:01 PM PDT Approved by: Candi Palomo MD on 05/06/2022 3:01 PM PDT Station ID: [id number]
--- NOTE | 2022-05-06 15:55 | XRAY Report ---
PROCEDURE: Chest 1 View X-Ray INDICATIONS: chest pain TECHNIQUE: One view of the chest was acquired. COMPARISON: None FINDINGS: Surgical changes and devices: None. Lungs and pleura: Mild right greater than left basal opacity. No pleural effusions or pneumothorax. Mediastinum: Borderline cardiomegaly. Bones and chest wall: No suspicious bony lesions. Overlying soft tissues appear unremarkable. Some hyperdensities are seen projecting over the left upper quadrant, location indeterminate. IMPRESSION: Evaluation is limited due to the presence of numerous overlying objects. Left greater than right basal suspected lung opacities could be infectious/inflammatory airspace dise ase and/or atelectasis. Consider imaging surveillance to monitor. Reviewed by: Matt Patel MD on 05/06/2022 3:53 PM PDT Approved by: Matt Patel MD on 05/06/2022 3:53 PM PDT Station ID: [id number]
[2022-05-06] MEDS ORDERED: ENALAPRILAT 1.25 MG/ML VIAL IVP STA (16:07)
--- NOTE | 2022-05-06 16:25 | ED Physician Documentation ---
PD HPI SYNCOPE - Stated complaint Stated Complaint: FALL - Chief complaint Chief Complaint: Neuro - History obtained from History obtained from: Patient, Family, EMS - History of Present Illness Witnessed: Witnessed (patient was getting up from toilet, assisted by her spouse, and he noted her to get pale and weak and less interactive. Not full LOC but nearly fainted. He lowered her to floor. No impact injury.) Timing - onset: Today Duration: Minutes (she was pale and less responsive talking for few minutes then improved. EMS noted her vitals okay. says BP has been quite elevted the past 2 days, intially 200s systolic, but trending down to 170-180s today.) Preceding symptoms: Headache. No: Vision changes, Chest pain, Dyspnea, Abdominal pain, Nausea / vomiting Contributing factors: Decreased PO intake (spouse describes less intake the past few days since fall 05/01/22) Injury occurred: No: Fell (no new fall today. states he lowered her to floor.) Similar symptoms before: Has not had sx before Recently seen: Emergency Dept Review of Systems Constitutional: denies: Fever, Chills Eyes: reports: Discharge (has had right then both eye discharge the past couple of days.). 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 HEENT: Tonsil/Adenoidectomy - Present Medications Home Medications: Ambulatory Orders Medication Instructions Recorded Confirmed Estradiol 0.05 mg Patch [Climara 03/14/15 07/16/15 0.05 mg] Sotalol [Betapace] 80 mg PO DAILY 07/16/15 07/16/15 Metoprolol Succinate [Toprol Xl] 75 mg PO BID 30 Days #180 tablet 08/25/21 Propylene Glycol/Peg 400 15 ml OP BID #1 bottle 08/25/21 [Lubricant 0.3%-0.4% Eye Drops] HYDROcod/ACETAM 5/325 [Moore 5/325] 1 - 2 tab PO Q6H PRN #15 tablet 04/30/22 Doxycycline Hyclate 100 mg PO BID 7 Days #14 cap 05/06/22 HYDROcod/ACETAM 5/325 [Moore 5/325] 1 ea PO Q6H PRN #18 tablet 05/06/22 Neomycin Alvarez/Bacitra/Polymyxin 1 applic OP QID 4 Days #3.5 gm 05/06/22 [Enrique-Polycin Eye Ointment] - Allergies Allergies/Adverse Reactions: Allergies Allergy/AdvReac Type Severity Reaction Status Date / Time amlodipine Allergy Unknown Verified 05/06/22 09:50 - Social History Does the pt smoke?: No Smoking Status: Never smoker Does the pt drink ETOH?: No Does the pt have substance abuse?: No - Immunizations Immunizations are current?: Yes Immunizations: TDAP >10years/unknown - POLST Patient has POLST: No PD ED PE NORMAL - Vitals Vital signs reviewed: Yes - General General: No acute distress, Well developed/nourished. No: Alert and oriented X 3 (oriented to person and place. anxious and talking nondirect train of thought, but seems anxiety related. ) - HEENT HEENT: PERRL (medial canthi with greenish white discharge both sides, left more than rgiht.), EOMI, Pharynx benign, Other (marked purple ecchymosis on face, particularly right periorbital, EOMs with some pain, but no diplopia. ) - Neck Neck: Supple, no meningeal sign, No bony TTP, No adenopathy - Cardiac Cardiac: No: RRR (irregular and giuliano. ) - Respiratory Respiratory: No respiratory distress, Clear bilaterally - Abdomen Abdomen: Soft, Non tender - Derm Derm: Normal color, Warm and dry - Extremities Extremities: Normal ROM s pain, No edema, No calf tenderness / cord - Neuro Neuro: No motor deficit, No sensory deficit, Normal speech. No: Alert and oriented X 3 Results - Vitals Vitals: Vital Signs - 24 hr 05/06/22 05/06/22 05/06/22 09:46 10:02 10:44 Temperature 35.9 C L Heart Rate 55 L 46 L 52 L Respiratory 19 22 15 Rate Blood Pressure 208/57 H 218/56 H 181/45 H O2 Saturation 97 98 97 05/06/22 05/06/22 05/06/22 11:00 11:41 12:45 Temperature Heart Rate 99 51 L 57 L Respiratory 19 20 16 Rate Blood Pressure 109/76 180/51 H 150/53 H O2 Saturation 95 98 98 05/06/22 05/06/22 05/06/22 14:06 14:35 15:06 Temperature Heart Rate 56 L 53 L 53 L Respiratory 12 15 20 Rate Blood Pressure 173/50 H 179/47 H 203/56 H O2 Saturation 99 99 05/06/22 05/06/22 16:24 16:40 Temperature 35.9 C L Heart Rate 56 L 56 L Respiratory 14 14 Rate Blood Pressure 187/47 H 177/50 H O2 Saturation 96 96 Oxygen O2 Source Room air - Labs Labs: Microbiology 05/06/22 10:18 Eye Culture - Preliminary Eye - Right Laboratory Tests 05/06/22 05/06/22 05/06/22 10:10 10:10 10:10 WBC 12.2 H RBC 4.72 Hgb 15.0 Hct 44.7 MCV 94.7 MCH 31.8 H MCHC 33.6 RDW 12.4 Plt Count 289 MPV 9.9 Neut # (Auto) 8.8 H Lymph # (Auto) 2.4 Hood # (Auto) 0.8 Eos # (Auto) 0.3 Baso # (Auto) 0.0 Absolute Nucleated RBC 0.00 Nucleated RBC % 0.0 PT 23.5 H INR 2.2 H Sodium 139 Potassium 3.8 Chloride 102 Carbon Dioxide 28 Anion Gap 9.0 BUN 41 H Creatinine 0.7 Estimated GFR (MDRD) 80 L Glucose 119 H Calcium 9.7 Magnesium 2.4 Total Bilirubin 1.2 H AST 32 ALT 21 Alkaline Phosphatase 73 Total Protein 7.5 Albumin 4.4 Globulin 3.1 Albumin/Globulin Ratio 1.4 Lipase 66 H - Rads (name of study) chest xray Radiology: Prelim report reviewed (no acute), See rad report head CT Radiology: Prelim report reviewed (bilateral hypodense fluid collections extra- axial, with appearing of more isodense compared to 05/01. Suggest repeat imaging in 6 hours to ensure no new bleeding. ), See rad report head ct Radiology: Prelim report reviewed (no interval change.), See rad report PD MEDICAL DECISION MAKING - ED course Complexity details: reviewed results (head CT had some increased hypodense fluid around brain. No signs acute bleeding, though consider subacute, Rad suggested 6 hour repeat. ), re-evaluated patient (She is doing better with good interaction and answering quesitons. very much would like to go home. ), considered differential (the syncope sounds like hydration related and possibly pain meds affecting her too. Did have lowering to ground without impact but is on Coumadin so will get CT. ), d/w patient ED course: She has purulent drainage from medial canthi. Likely stagnation and conjunctivitis due to recent periorbital ecchymosis. But has orbit wall Fx and sinus fluid, so concerned for deeper infection, but does not appear ill and no eye pain with EOMs. Head CT had suggestion of less hypodense extra-axial fluid collections. Consider mild bleed. Interval repeat did not show any new bleeding/change. Departure - Departure Disposition: 01 Home, Self Care Clinical Impression: Syncope, Conjunctivitis, Wound infection, Elevated blood pressure reading Condition: Stable Record reviewed to determine appropriate education?: Yes Instructions: ED Fainting Unkn Cause Prescriptions: Doxycycline Hyclate 100 mg PO BID 7 Days #14 cap Neomycin Alvarez/Bacitra/Polymyxin [Enrique-Polycin Eye Ointment] 1 applic OP QID 4 Days #3.5 gm HYDROcod/ACETAM 5/325 [Moore 5/325] 1 ea PO Q6H PRN #18 tablet PRN Reason: Pain Comments: Your testing here does not show any obvious acute abnormality. There was a question on your head CT scan whether there was an increased amount of fluid around the brain with a recommendation for repeat scan in several hours. We did that and it did not show any interval change. It therefore does not look like a blockage of flow or new bleed or such. Its unclear the cause of the fainting episode. I do not see any obvious significant cause with the blood testing in imaging. Your blood pressure if anything was elevated which likely is in response to the anxiety and pain. You would more expect a fainting episode from low blood pressure. It may have actually dropped temporarily causing the fainting episode but is not consistently low here. Be sure to maintain good hydration. I am concerned about the discharge around the right eye. This may be simple conjunctivitis (pinkeye) because of the prior swelling and bruising affecting the tear flow through the ducts. However I would be concerned for a deeper infection around the wounds. I would treat with both an antibiotic eye ointment as well as oral antibiotics for this. No so provided a further prescription for pain medicine if needed. I would suggest using Tylenol 500 mg 4 times daily regularly for the next week or so and to that add the hydrocodone if needed for worse pain. Again stay well-hydrated. Follow-up with your primary care if repeated episodes or problems. I would expect the blood pressure to trend down over the next several days as you get further out from the injury. I transmitted your prescriptions to [facility] in [place]. I am prescribing a short course of narcotic pain medication for you. These are potentially dangerous and addictive medications that should be used carefully. These medications may constipate you. Take an [id number] stool softener such as docusate twice daily with plenty of water while taking these medications. If you go 24 hours without a bowel movement, take [id number] MiraLAX, per package instructions. Do not drink or drive while taking these medications. If you received narcotic or sedating medications while in the emergency department do not drive for 24 hours. Store this medication in a safe, secure place and out of reach of children. It is a violation of federal law to give or sell this medication to another person or to use in a manner other than prescribed. The ED will not refill narcotic prescriptions, including prescriptions lost or stolen. You can dispose of unwanted medications at the [facility]'s office or at several pharmacies such as [facility]. Discharge Date/Time: 05/06/22 16:44
[2022-05-06 16:44] VITALS: BP 177/50
== END 2022-05-06 16:44 | disposition home or self-care (01) ==
LOC: EDUNIT# → ED 09:31
DX: R55 Syncope and collapse (principal); I48.91 Unspecified atrial fibrillation; H10.9 Unspecified conjunctivitis; R03.0 Elevated blood-pressure reading, without diagnosis of hypertension
CPT/HCPCS: 36415; 70450; 71045; 80053; 83690; 83735; 85025; 85610; 87070; 93005; 96374; 96375; 99284; A9270; J3490

== ENCOUNTER 2022-05-18 10:15 | Outpatient (CLI) | payer MEDICARE | END 2022-05-18 10:16 | disposition home or self-care (01) | LOC: LAB.S 10:15 | PROVIDERS: ATTEND Internal Medicine Rheumatology | DX: Z79.01 Long term (current) use of anticoagulants (principal) | CPT/HCPCS: 36416; 85610 ==

== ENCOUNTER 2022-05-19 17:15 | Emergency (ER) | payer MEDICARE ==
--- OUTSIDE RECORDS SUMMARY | 2022-05-19 17:46 | EXTERNAL MEDICAL SUMMARY RPT | Continuity of Care Document ---
:1940 Author Organization [facility] Address [address] [place] [address] Phone Care Team Providers Name Role Phone Unavailable Unavailable Unavailable Nicolasa Pepe Pa-C Unavailable Unavailable Allergies No information. Encounters No information. Functional Status No information. Immunizations No information. Medications date description facility [id number]+0000 dupilumab [facility] [phone]+0000 dupilumab [facility] [phone]+0000 adalimumab [facility] [phone]+0000 mupirocin [facility] [phone]+0000 estradiol [facility] [phone]+0000 metoprolol succinate [facility] [phone]+0000 metoprolol succinate [facility] [phone]+0000 clobetasol [facility] [phone]+0000 prednisone [facility] [phone]+0000 calcipotriene [facility] [phone]+0000 ciprofloxacin hcl [facility] [phone]+0000 triamcinolone acetonide [facility] [phone]+0000 hydroxyzine hcl [facility] [phone]+0000 ketoconazole [facility] [phone]+0000 mupirocin [facility] [phone]+0000 hydroxyzine hcl [facility] [id number]+0000 triamcinolone acetonide [facility] [phone]+0000 fluocinolone acetonide oil [facility] [phone]+0000 fluocinolone and shower cap Walk[facility]In [facility] [phone]+0000 fluocinolone [facility] [phone]+0000 acyclovir [facility] [phone]+0000 valacyclovir [facility] [phone]+0000 fluocinolone [facility] [phone]+0000 fluocinolone and shower cap [facility] [phone]+0000 adalimumab [facility] [phone]+0000 prednisone [facility] [phone]+0000 dupilumab [facility] [phone]+0000 acyclovir [facility] [phone]+0000 amlodipine [facility] [id number]+0000 dupilumab [facility] [phone]+0000 methimazole [facility] [phone]+0000 adalimumab [facility] [phone]+0000 ketoconazole [facility] [phone]+0000 desonide [facility] [phone]+0000 dupilumab [facility] [phone]+0000 triamcinolone acetonide [facility] [phone]+0000 triamcinolone acetonide [facility] [phone]+0000 prednisone [facility] [phone]+0000 dupilumab [facility] [phone]+0000 estradiol [facility] [phone]+0000 estradiol [facility] [phone]+0000 acyclovir [facility] [phone]+0000 amlodipine [facility] [phone]+0000 amlodipine [facility] [phone]+0000 clobetasol [facility] [phone]+0000 desonide [facility] [phone]+0000 ketoconazole [facility] [phone]+0000 ketoconazole [facility] [phone]+0000 methimazole [facility] [id number]+0000 citalopram [facility] [phone]+0000 methimazole [facility] [phone]+0000 mupirocin [facility] [phone]+0000 alprazolam [facility] [phone]+0000 amlodipine [facility] [phone]+0000 calcipotriene [facility] [phone]+0000 ciprofloxacin hcl [facility] [phone]+0000 prednisone [facility] [phone]+0000 valacyclovir [facility] [phone]+0000 calcipotriene [facility] [phone]+0000 metoprolol succinate [facility] [phone]+0000 metoprolol succinate [facility] [phone]+0000 amlodipine [facility] [phone]+0000 amlodipine [facility] [phone]+0000 valacyclovir [facility] [phone]+0000 losartan [facility] [phone]+0000 losartan [facility] [phone]+0000 rosuvastatin [facility] [phone]+0000 losartan [facility] [phone]+0000 losartan [facility] [phone]+0000 calcipotriene [facility] [phone]+0000 calcipotriene [facility] [phone]+0000 triamcinolone acetonide [facility] [phone]+0000 triamcinolone acetonide [facility] [phone]+0000 fluocinonide [facility] [phone]+0000 clobetasol [facility] [phone]+0000 ketoconazole [facility] [phone]+0000 fluocinonide [facility] [phone]+0000 methimazole [facility] [phone]+0000 calcipotriene [facility] [phone]+0000 desonide [facility] [phone]+0000 clobetasol [facility] [phone]+0000 ketoconazole [facility] [phone]+0000 warfarin [facility] [phone]+0000 cyclosporine modified [facility] [phone]+0000 warfarin [facility] [phone]+0000 ciprofloxacin hcl [facility] [phone]+0000 citalopram [facility] [phone]+0000 pimecrolimus [facility] [phone]+0000 alprazolam [facility] [phone]+0000 hydroxyzine hcl [facility] [phone]+0000 citalopram [facility] [phone]+0000 amlodipine [facility] [phone]+0000 amlodipine [facility] [phone]+0000 alprazolam [facility] [phone]+0000 ciprofloxacin hcl [facility] [phone]+0000 acyclovir [facility] [phone]+0000 valacyclovir [facility] [phone]+0000 estradiol [facility] [phone]+0000 fluocinolone acetonide oil [facility] [id number]+0000 fluocinolone and shower cap [facility] [phone]+0000 fluocinolone [facility] [phone]+0000 adalimumab [facility] [phone]+0000 cyclosporine modified [facility] [phone]+0000 clobetasol [facility] [phone]+0000 losartan [facility] [phone]+0000 losartan [facility] [phone]+0000 rosuvastatin [facility] [phone]+0000 pimecrolimus [facility] [phone]+0000 metoprolol succinate [facility] [phone]+0000 metoprolol succinate [facility] [phone]+0000 citalopram [facility] [phone]+0000 pimecrolimus [facility] [phone]+0000 warfarin [facility] [phone]+0000 rosuvastatin [facility] [phone]+0000 cyclosporine modified [facility] [phone]+0000 warfarin [facility] [phone]+0000 rosuvastatin [facility] [phone]+0000 clobetasol [facility] [phone]+0000 clobetasol [facility] [phone]+0000 clobetasol [facility] [phone]+0000 clobetasol [facility] [phone]+0000 metoprolol succinate [facility] [phone]+0000 metoprolol succinate [facility] [phone]+0000 fluocinolone acetonide oil [facility] [phone]+0000 mupirocin [facility] [phone]+0000 ketoconazole [facility] [phone]+0000 ketoconazole [facility] [phone]+0000 calcipotriene [facility] [phone]+0000 calcipotriene [facility] [phone]+0000 dupilumab [facility] [phone]+0000 dupilumab [facility] [phone]+0000 clobetasol [facility] [phone]+0000 clobetasol [facility] [phone]+0000 clobetasol [facility] [phone]+0000 desonide [facility] [phone]+0000 fluocinolone [facility] [phone]+0000 fluocinolone and shower cap Walk[facility]In [facility] [phone]+0000 fluocinonide [facility] [phone]+0000 triamcinolone acetonide [facility] [phone]+0000 triamcinolone acetonide [facility] [phone]+0000 pimecrolimus [facility] [phone]+0000 alprazolam [facility] [phone]+0000 fluocinonide [facility] [phone]+0000 losartan [facility] [phone]+0000 losartan [facility] [phone]+0000 cyclosporine modified [facility] [phone]+0000 fluocinolone acetonide oil [facility] [phone]+0000 hydroxyzine hcl [facility] [place] maya Problems No information. Procedures date description facility +0000 Visit Code Hold [facility] [place] Results/Labs No information. Social History date description facility +0000 Never smoker [facility] [place] Vital Signs date measurement value units +0000 BMI BMI 17.01 kg/m2 +0000 BP_diastolic BP_diastolic 79 mmHg +0000 BP_systolic BP_systolic 215 mmHg +0000 heart_rate heart_rate 2 /min +0000 height_metric height_metric 167.64 cm +0000 height_standard height_standard 66 in +0000 respiration_rate respiration_rate 17 /min +0000 temperature_metric temperature_metric 36.83 C [id number]+0000 temperature_standard temperature_standard 9 8.3 F [id number]+0000 weight_metric weight_metric 47.63 kg +0000 weight_standard weight_standard 105 lb
--- NOTE | 2022-05-19 18:10 | ED Physician Documentation ---
History of Present Illness - Stated complaint Stated Complaint: POSS BRAIN BLEED - Chief complaint Chief Complaint: Neuro - History obtained from History obtained from: Patient, Family - History of Present Illness Timing: Today - Additonal information Additional information: Patient is an 81-year-old female who presents to the emergency department after a fall approximately 1 week ago. She sustained significant facial bruising. She is on warfarin. She states that she had her INR checked yesterday by fingerstick and it was 1.1. She then had a blood draw that resulted her INR greater than 10. Her doctor saw her today and sent her here for evaluation. She had headaches after the fall, none now. No vomiting. No altered mental status. Nothing makes it better or worse. 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 RESOURCE: Hysterectomy, Breast implants HEENT: Tonsil/Adenoidectomy - Present Medications Home Medications: Ambulatory Orders Medication Instructions Recorded Confirmed Estradiol 0.05 mg Patch [Climara 03/14/15 07/16/15 0.05 mg] Sotalol [Betapace] 80 mg PO DAILY 07/16/15 07/16/15 Metoprolol Succinate [Toprol Xl] 75 mg PO BID 30 Days #180 tablet 08/25/21 Propylene Glycol/Peg 400 15 ml OP BID #1 bottle 08/25/21 [Lubricant 0.3%-0.4% Eye Drops] HYDROcod/ACETAM 5/325 [[place] 5/325] 1 - 2 tab PO Q6H PRN #15 tablet 04/30/22 Doxycycline Hyclate 100 mg PO BID 7 Days #14 cap 05/06/22 HYDROcod/ACETAM 5/325 [[place] 5/325] 1 ea PO Q6H PRN #18 tablet 05/06/22 Neomycin Alvarez/Bacitra/Polymyxin 1 applic OP QID 4 Days #3.5 gm 05/06/22 [Enrique-Polycin Eye Ointment] - Allergies Allergies/Adverse Reactions: Allergies Allergy/AdvReac Type Severity Reaction Status Date / Time amlodipine Allergy Unknown Verified 05/19/22 17:25 - Social History Does the pt smoke?: No Smoking Status: Never smoker Does the pt drink ETOH?: No Does the pt have substance abuse?: No - Immunizations Immunizations are current?: Yes Immunizations: TDAP >10years/unknown - POLST Patient has POLST: No PD ED PE NORMAL - Vitals Vital signs reviewed: Yes - General General: Alert and oriented X 3, No acute distress, Well developed/nourished - HEENT HEENT: PERRL, Moist mucous membranes, Other (Extensive bruising down the front of her face. No palpable skull fractures. No hematomas.) - Neck Neck: Supple, no meningeal sign, No bony TTP - Cardiac Cardiac: RRR, Strong equal pulses - Respiratory Respiratory: No respiratory distress, Clear bilaterally - Abdomen Abdomen: Soft, Non tender, Non distended - Back Back: No spinal TTP - Derm Derm: Warm and dry - Extremities Extremities: No edema - Neuro Neuro: Alert and oriented X 3, global technical writer 2-12 intact, No motor deficit, No sensory deficit, Normal speech Eye Opening: Spontaneous Motor: Obeys Commands Verbal: Oriented GCS Score: 15 - Psych Psych: Normal mood, Normal affect Results - Vitals Vitals: Vital Signs - 24 hr 05/19/22 05/19/22 05/19/22 17:20 17:48 18:54 Temperature 36.4 C L Heart Rate 67 58 L 60 Respiratory 18 16 16 Rate Blood Pressure 182/69 H 175/61 H 170/64 H O2 Saturation 100 100 100 Oxygen O2 Source Room air - Labs Labs: Laboratory Tests 05/19/22 17:53 PT 11.6 INR 1.0 - Rads (name of study) CT head Radiology: Final report received, EMP read contemporaneously, See rad report PD MEDICAL DECISION MAKING - ED course Complexity details: reviewed results, re-evaluated patient, considered differential, d/w patient, d/w family ED course: Patient's INR is 1.0. Head CT does not show any acute abnormalities. Has no indication of acute intracranial hemorrhage. We will have her follow-up with her doctor for further care. Patient and family counseled regarding signs and symptoms for which I believe and urgent re-evaluation would be necessary. Patient with good understanding of and agreement to plan and is comfortable going home at this time This document was made in part using voice recognition software. While efforts are made to proofread this document, sound alike and grammatical errors may occur. Departure - Departure Disposition: 01 Home, Self Care Clinical Impression: Head injury Qualifiers: Encounter type: initial encounter Qualified Code(s): S09.90XA - Unspecified injury of head, initial encounter Condition: Good Instructions: ED Head Injury Closed Follow-Up: Morales Hallman MD [Primary Care Provider] - Comments: Your INR is 1.[address] does not show any acute abnormalities. Please follow-up with your doctor tomorrow for further care and instructions regarding your warfarin use. Please return if you worsen. Discharge Date/Time: 05/19/22 18:54
[2022-05-19 18:17] LABS: PT - PROTHROMBIN TIME 11.6 secs (9.9-12.6)
--- NOTE | 2022-05-19 18:42 | CT Report ---
PROCEDURE: HEAD WO INDICATIONS: Fall, head injury, elevated INR TECHNIQUE: Noncontrast 4.5 mm thick angled axial sections acquired from the foramen magnum to the vertex. For r adiation dose reduction, the following was used: automated exposure control, adjustment of mA and/or kV according to patient size. COMPARISON: None. FINDINGS: Image quality: Excellent. CSF spaces: Basal cisterns are patent. Bilateral frontal subdural areas of isointensity to brain are similar to the prior CT on 05/06/2022, likely subdural hygromas. Ventricles are normal in size and s hape. Brain: No midline shift. No intracranial masses or hemorrhage. Soliman-white matter interface is norm al. Subcortical and periventricular hypodensities are consistent with microvascular ischemic disease and age-related cerebral volume loss. Skull and face: Calvarium and visualized facial bones are intact, without suspicious lesions. Sinuses: Visualized sinuses and mastoids are clear. IMPRESSION: 1. No acute intracranial abnormality. 2. 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 There is no significant interval change compared to 05/06/2022. 3. Microvascular ischemic disease and age-related cerebral volume loss. Reviewed by: Lobito Vivas on 05/19/2022 6:41 PM PDT Approved by: Lobito Vivas on 05/19/2022 6:41 PM PDT Station ID: [id number]
[2022-05-19 18:55] VITALS: BP 170/64
== END 2022-05-19 18:54 | disposition home or self-care (01) ==
LOC: ED 17:15
DX: S09.90XA Unspecified injury of head, initial encounter (principal); W18.30XA Fall on same level, unspecified, initial encounter
CPT/HCPCS: 36415; 85610; 99282; 99284

== ENCOUNTER 2022-05-24 10:18 | Outpatient (CLI) | payer MEDICARE | END 2022-05-24 10:19 | disposition home or self-care (01) | LOC: LAB.S 10:18 | PROVIDERS: ATTEND Internal Medicine Rheumatology | DX: Z79.01 Long term (current) use of anticoagulants (principal) | CPT/HCPCS: 36416; 85610 ==

== ENCOUNTER 2022-05-31 09:38 | Outpatient (CLI) | payer MEDICARE | END 2022-05-31 09:39 | disposition home or self-care (01) | LOC: LAB.S 09:38 | PROVIDERS: ATTEND Internal Medicine Rheumatology | DX: Z79.01 Long term (current) use of anticoagulants (principal) | CPT/HCPCS: 36416; 85610 ==

== ENCOUNTER 2022-06-17 10:49 | Outpatient (CLI) | payer MEDICARE | END 2022-06-17 10:50 | disposition home or self-care (01) | LOC: LAB.S 10:49 | DX: Z79.01 Long term (current) use of anticoagulants (principal) | CPT/HCPCS: 36416; 85610 ==

== ENCOUNTER 2022-07-02 09:56 | Outpatient (CLI) | payer MEDICARE | END 2022-07-02 09:57 | disposition home or self-care (01) | LOC: LAB.S 09:56 | PROVIDERS: ATTEND Internal Medicine | DX: Z79.01 Long term (current) use of anticoagulants (principal) | CPT/HCPCS: 36416; 85610 ==

== ENCOUNTER 2022-07-23 09:17 | Outpatient (CLI) | payer MEDICARE | END 2022-07-23 09:18 | disposition home or self-care (01) | LOC: LAB.S 09:17 | PROVIDERS: ATTEND Internal Medicine | DX: Z79.01 Long term (current) use of anticoagulants (principal) | CPT/HCPCS: 36416; 85610 ==

== ENCOUNTER 2022-08-17 12:56 | Outpatient (CLI) | payer MEDICARE | END 2022-08-17 12:57 | disposition home or self-care (01) | LOC: LAB.S 12:56 | PROVIDERS: ATTEND Internal Medicine | DX: Z79.01 Long term (current) use of anticoagulants (principal) | CPT/HCPCS: 36416; 85610 ==

== ENCOUNTER 2022-09-24 11:53 | Outpatient (CLI) | payer MEDICARE ==
[2022-09-24 15:08] LABS: BASOPHILS % (AUTO) 0.4 %; EOSINOPHILS # (AUTO) 0.4 10^3/uL (0.0-0.7); EOSINOPHILS % (AUTO) 4.6 %; HCT - HEMATOCRIT 40.8 % (37.0-47.0); HGB - HEMOGLOBIN 12.8 g/dL (12.0-16.0); LYMPHOCYTES # (AUTO) 2.3 10^3/uL (1.5-3.5); LYMPHOCYTES % (AUTO) 29.2 %; MEAN CORPUSCULAR HEMOGLOBIN 30.9 pg (27.0-31.0); MEAN CORPUSCULAR HGB CONC 31.4 g/dL (32.0-36.0); MEAN CORPUSCULAR VOLUME 98.6 fL (81.0-99.0); MEAN PLATELET VOLUME 10.8 fL (7.9-10.8); MONOCYTES # (AUTO) 0.4 10^3/uL (0.0-1.0); MONOCYTES % (AUTO) 5.2 %; NEUTROPHILS # (AUTO) 4.7 10^3/uL (1.5-6.6); NEUTROPHILS % (AUTO) 60.3 %; PLT - PLATELET COUNT 238 10^3/uL (130-450); RED BLOOD COUNT 4.14 10^6/uL (4.20-5.40); WHITE BLOOD COUNT 7.8 x10^3/uL (4.8-10.8)
[2022-09-24 15:54] LABS: CREATININE 0.7 mg/dL (0.4-1.0); POTASSIUM 4.2 mmol/L (3.5-5.0)
[2022-09-25 06:09] LABS: HCV AB <0.1 s/co ratio (0.0-0.9)
[2022-09-26 11:08] LABS: HBsAG SCREEN Negative (Negative)
== END 2022-09-24 11:54 | disposition home or self-care (01) ==
LOC: LAB.S 11:53
PROVIDERS: ATTEND Internal Medicine
DX: Z79.899 Other long term (current) drug therapy (principal); Z79.01 Long term (current) use of anticoagulants
CPT/HCPCS: 36415; 80048; 81599; 85025; 85610; 86480; 86803; 87340

== ENCOUNTER 2022-10-01 09:56 | Outpatient (CLI) | payer MEDICARE | END 2022-10-01 09:57 | disposition home or self-care (01) | LOC: LAB.S 09:56 | PROVIDERS: ATTEND Internal Medicine | DX: Z79.01 Long term (current) use of anticoagulants (principal) | CPT/HCPCS: 36416; 85610 ==

== ENCOUNTER 2022-10-15 09:38 | Outpatient (CLI) | payer MEDICARE | END 2022-10-15 09:39 | disposition home or self-care (01) | LOC: LAB.S 09:38 | PROVIDERS: ATTEND Internal Medicine | DX: Z79.01 Long term (current) use of anticoagulants (principal) | CPT/HCPCS: 36416; 85610 ==

== ENCOUNTER 2022-11-12 11:46 | Outpatient (CLI) | payer MEDICARE | END 2022-11-12 11:47 | disposition home or self-care (01) | LOC: LAB.S 11:46 | PROVIDERS: ATTEND Internal Medicine | DX: Z79.01 Long term (current) use of anticoagulants (principal) | CPT/HCPCS: 36416; 85610 ==

== ENCOUNTER 2022-11-30 09:03 | Outpatient (CLI) | payer MEDICARE | END 2022-11-30 09:04 | disposition home or self-care (01) | LOC: LAB.S 09:03 | PROVIDERS: ATTEND Registered Nurse | DX: Z79.01 Long term (current) use of anticoagulants (principal) | CPT/HCPCS: 36416; 85610 ==

== ENCOUNTER 2022-12-07 10:43 | Outpatient (CLI) | payer MEDICARE | END 2022-12-07 10:44 | disposition home or self-care (01) | LOC: LAB.S 10:43 | PROVIDERS: ATTEND Registered Nurse | DX: Z79.01 Long term (current) use of anticoagulants (principal) | CPT/HCPCS: 36416; 85610 ==

== ENCOUNTER 2023-01-11 08:00 | Outpatient (CLI) | payer MEDICARE | END 2023-01-11 23:59 | disposition home or self-care (01) | LOC: LAB.F 08:00 | PROVIDERS: ATTEND Registered Nurse | DX: I48.0 Paroxysmal atrial fibrillation (principal); Z79.01 Long term (current) use of anticoagulants ==

== ENCOUNTER 2023-02-24 08:00 | Outpatient (CLI) | payer MEDICARE | END 2023-02-24 23:59 | disposition home or self-care (01) | LOC: LAB.F 08:00 | PROVIDERS: ATTEND Registered Nurse | DX: I48.0 Paroxysmal atrial fibrillation (principal); I69.354 Hemiplegia and hemiparesis following cerebral infarction affecting left non-dominant side ==

== ENCOUNTER 2023-03-17 08:00 | Outpatient (CLI) | payer MEDICARE | END 2023-03-17 23:59 | disposition home or self-care (01) | LOC: LAB.F 08:00 | PROVIDERS: ATTEND Registered Nurse | DX: I48.0 Paroxysmal atrial fibrillation (principal); Z79.01 Long term (current) use of anticoagulants ==

== ENCOUNTER 2023-05-05 08:00 | Outpatient (CLI) | payer MEDICARE | END 2023-05-05 23:59 | disposition home or self-care (01) | LOC: LAB.F 08:00 | PROVIDERS: ATTEND Registered Nurse | DX: I48.0 Paroxysmal atrial fibrillation (principal); I69.954 Hemiplegia and hemiparesis following unspecified cerebrovascular disease affecting left non-dominant side; Z79.01 Long term (current) use of anticoagulants ==

== ENCOUNTER 2023-06-28 08:00 | Outpatient (CLI) | payer MEDICARE | END 2023-06-28 23:59 | disposition home or self-care (01) | LOC: LAB.F 08:00 | PROVIDERS: ATTEND Registered Nurse | DX: I48.0 Paroxysmal atrial fibrillation (principal); Z79.01 Long term (current) use of anticoagulants ==

== ENCOUNTER 2023-08-05 15:06 | Outpatient (CLI) | payer MEDICARE ==
[2023-08-05 19:46] LABS: BASOPHILS # (AUTO) 0.1 10^3/uL (0.0-0.1); BASOPHILS % (AUTO) 0.5 %; EOSINOPHILS # (AUTO) 0.6 10^3/uL (0.0-0.7); EOSINOPHILS % (AUTO) 6.4 %; HGB - HEMOGLOBIN 14.4 g/dL (12.0-16.0); LYMPHOCYTES # (AUTO) 2.8 10^3/uL (1.5-3.5); MEAN CORPUSCULAR HEMOGLOBIN 31.4 pg (27.0-31.0); MEAN PLATELET VOLUME 11.1 fL (7.9-10.8); MONOCYTES # (AUTO) 0.4 10^3/uL (0.0-1.0); MONOCYTES % (AUTO) 4.4 %; NEUTROPHILS # (AUTO) 5.2 10^3/uL (1.5-6.6); NEUTROPHILS % (AUTO) 57.5 %; PLT - PLATELET COUNT 232 10^3/uL (130-450); RED BLOOD COUNT 4.59 10^6/uL (4.20-5.40); RED CELL DISTRIBUTION WIDTH 13.3 % (12.0-15.0); WHITE BLOOD COUNT 9.1 x10^3/uL (4.8-10.8)
[2023-08-05 20:07] LABS: ALBUMIN 4.6 g/dL (3.2-5.5); ALBUMIN/GLOBULIN RATIO 1.5 (1.0-2.2); BILIRUBIN,TOTAL 0.6 mg/dL (0.2-1.0); CALCIUM 10.4 mg/dL (8.5-10.3); CREATININE 0.8 mg/dL (0.6-1.3); POTASSIUM 3.7 mmol/L (3.5-4.5); TOTAL PROTEIN 7.6 g/dL (6.4-8.9)
== END 2023-08-05 15:07 | disposition home or self-care (01) ==
LOC: LAB.S 15:06
PROVIDERS: ATTEND Nurse Practitioner
DX: L40.1 Generalized pustular psoriasis (principal)
CPT/HCPCS: 36415; 80053; 81599; 85025

== ENCOUNTER 2023-08-08 10:10 | Outpatient (CLI) | payer MEDICARE ==
[2023-08-08 15:12] LABS: BASOPHILS % (AUTO) 0.5 %; EOSINOPHILS # (AUTO) 0.7 10^3/uL (0.0-0.7); EOSINOPHILS % (AUTO) 8.9 %; HCT - HEMATOCRIT 44.9 % (37.0-47.0); HGB - HEMOGLOBIN 13.9 g/dL (12.0-16.0); LYMPHOCYTES # (AUTO) 1.9 10^3/uL (1.5-3.5); LYMPHOCYTES % (AUTO) 24.8 %; MEAN CORPUSCULAR HEMOGLOBIN 30.8 pg (27.0-31.0); MEAN CORPUSCULAR VOLUME 99.6 fL (81.0-99.0); MEAN PLATELET VOLUME 10.7 fL (7.9-10.8); MONOCYTES # (AUTO) 0.4 10^3/uL (0.0-1.0); MONOCYTES % (AUTO) 5.7 %; NEUTROPHILS # (AUTO) 4.5 10^3/uL (1.5-6.6); PLT - PLATELET COUNT 241 10^3/uL (130-450); RED BLOOD COUNT 4.51 10^6/uL (4.20-5.40); RED CELL DISTRIBUTION WIDTH 13.2 % (12.0-15.0); WHITE BLOOD COUNT 7.6 x10^3/uL (4.8-10.8)
[2023-08-08 15:18] LABS: ALBUMIN 4.2 g/dL (3.2-5.5); ALBUMIN/GLOBULIN RATIO 1.4 (1.0-2.2); BILIRUBIN,TOTAL 0.6 mg/dL (0.2-1.0); CALCIUM 10.1 mg/dL (8.5-10.3); CREATININE 0.7 mg/dL (0.6-1.3); POTASSIUM 4.2 mmol/L (3.5-4.5); TOTAL PROTEIN 7.2 g/dL (6.4-8.9)
== END 2023-08-08 10:11 | disposition home or self-care (01) ==
LOC: LAB.S 10:10
PROVIDERS: ATTEND Nurse Practitioner
DX: Z08 Encounter for follow-up examination after completed treatment for malignant neoplasm (principal); Z85.828 Personal history of other malignant neoplasm of skin; Z85.820 Personal history of malignant melanoma of skin; L40.1 Generalized pustular psoriasis; L65.8 Other specified nonscarring hair loss; L57.0 Actinic keratosis
CPT/HCPCS: 36415; 80053; 81599; 85025; 86480

== ENCOUNTER 2023-08-09 13:51 | Outpatient (CLI) | payer MEDICARE ==
--- NOTE | 2023-08-17 08:12 | Mammography Report ---
BILATERAL DIGITAL SCREENING MAMMOGRAM 3D/2D WITH AUGMENTATION: 08/09/2023 CLINICAL: Routine screening. No prior exams were available for comparison. Both breasts are almost entirely fatty (category a/<25% glandular tissue). No significant masses, calcifications, or other findings are seen in either breast. Limited evaluati on of the right breast secondary to inability to obtain implant displaced views. Best images possibl e were obtained. IMPRESSION: BENIGN The implants are intact. There is no mammographic evidence of malignancy. A 1 year screening mammogram is recommended. Based on the Tyrer Cuzick model (a risk assessment model) the patients lifetime risk is 0.3% and her 10 year risk is 0.0%. According to the ACR, ACS, and NCCN guidelines, an annual breast MRI exam noel g with mammogram is recommended if the patients lifetime risk is 20% or greater. This exam was interpreted at Station ID: [id number]. NOTE: For mammograms, a report in lay terms will be sent to the patient. Approximately 15% of breast malignancies will not be visualized mammographically. In the management of a palpable breast mass, a negative mammogram must not discourage biopsy of a clinically suspicious lesion. Electronically Signed By: Nigel Giang M.D. aty/:08/16/2023 10:49:37 ACR BI-RADS Category 2: Benign Finding(s) 3342F PARENCHYMAL PATTERN: (F) - The breast(s) demonstrate(s) diffuse fatty replacement. BI-RADS CATEGORY: (2) - 2 Mammogram [id number] 1 year screening LATERALITY: (B)
== END 2023-08-09 13:52 | disposition home or self-care (01) ==
LOC: DI.S 13:51
PROVIDERS: ATTEND Registered Nurse
DX: Z12.31 Encounter for screening mammogram for malignant neoplasm of breast (principal); Z98.82 Breast implant status

== ENCOUNTER 2023-08-18 08:00 | Outpatient (CLI) | payer MEDICARE | END 2023-08-18 08:01 | disposition home or self-care (01) | LOC: LAB.F 08:00 | PROVIDERS: ATTEND Registered Nurse | DX: I48.0 Paroxysmal atrial fibrillation (principal); I69.354 Hemiplegia and hemiparesis following cerebral infarction affecting left non-dominant side; Z79.01 Long term (current) use of anticoagulants ==

== ENCOUNTER 2023-08-27 11:42 | Outpatient (CLI) | payer MEDICARE | END 2023-08-27 23:59 | disposition critical access hospital (66) | LOC: EMS 11:42 | DX: R21 Rash and other nonspecific skin eruption (principal) | CPT/HCPCS: A0425; A0429 ==

== ENCOUNTER 2023-08-27 12:34 | Emergency (ER) | payer MEDICARE ==
[2023-08-27 13:02] VITALS: O2SAT 98
--- NOTE | 2023-08-27 13:03 | ED Physician Documentation ---
PD HPI SKIN - Stated complaint Stated Complaint: RASH/ALLERGIC REACTION - Chief complaint Chief Complaint: Allergic Rx - History obtained from History obtained from: Patient - Additional information Additional information: 82-year-old female arrives via ambulance for severe full body rash. Patient reports that she recently started taking Keflex for an infection to her right thumb. She is overall quite poor historian she says that she lives at home alone her recently . She said she attempted to treat her right thumb infection with some topical antibiotic ointment it did not improve and her provider prescribed her Keflex on 08/24/2023 she thinks she has taken a total of 3-4 doses and today she presents to the emergency department with a severe full body rash. The rash is from the back of her head down to her feet it does involve the palms of her hands there does appear to be some blistering of skin she reports that is quite painful mostly at the back of her legs and her back. She denies any shortness of breath there is no periorbital swelling no chest pain. Denies pruritus for me The only home medication that I am able to see that she takes consistently and again the patient is a poor historian is metoprolol 75 mg twice daily. PD PAST MEDICAL HISTORY - Past Medical History Cardiovascular: Atrial fibrillation, Other Derm: Eczema - Past Surgical History Past Surgical History: Yes Ortho: Arthroscopic surgery /NITRATING ACID MIXER: Hysterectomy, Breast implants HEENT: Tonsil/Adenoidectomy - Present Medications Home Medications: Ambulatory Orders Medication Instructions Recorded Confirmed Estradiol 0.05 mg Patch [Climara 03/14/15 07/16/15 0.05 mg] Sotalol [Betapace] 80 mg PO DAILY 07/16/15 07/16/15 Metoprolol Succinate [Toprol Xl] 75 mg PO BID 30 Days #180 tablet 08/25/21 Propylene Glycol/Peg 400 15 ml OP BID #1 bottle 08/25/21 [Lubricant 0.3%-0.4% Eye Drops] HYDROcod/ACETAM 5/325 [[place] 5/325] 1 - 2 tab PO Q6H PRN #15 tablet 04/30/22 Doxycycline Hyclate 100 mg PO BID 7 Days #14 cap 05/06/22 HYDROcod/ACETAM 5/325 [[place] 5/325] 1 ea PO Q6H PRN #18 tablet 05/06/22 Neomycin Alvarez/Bacitra/Polymyxin 1 applic OP QID 4 Days #3.5 gm 05/06/22 [Enrique-Polycin Eye Ointment] Sulfamethox/Trimeth 800/160 1 tablet PO BID 7 Days #13 tablet 08/27/23 [Bactrim Ds] predniSONE [Prednisone] 10 mg PO DAILYWM #3 tablet 08/27/23 - Allergies Allergies/Adverse Reactions: Allergies Allergy/AdvReac Type Severity Reaction Status Date / Time amlodipine Allergy Unknown Verified 05/19/22 17:25 - Social History Does the pt smoke?: No Smoking Status: Never smoker Does the pt drink ETOH?: No Does the pt have substance abuse?: No - Immunizations Immunizations are current?: Yes Immunizations: TDAP >10years/unknown - POLST Patient has POLST: No PD ED PE NORMAL - Vitals Vital signs reviewed: Yes - General General: Alert and oriented X 3, Other (although does appear to have some level of cognitive impairment) - HEENT HEENT: Atraumatic - Cardiac Cardiac: RRR - Respiratory Respiratory: No respiratory distress - Abdomen Abdomen: Normal bowel sounds, Non tender - Derm Derm: Other (Significant erythema to chest, back of head, back, arms, legs, hands, palms of hands with defined borders and what appears to be bulla. Posterior bilateral knees appears scaly. No weaping or oozing, no open wounds of rashes, no hives. Right thumb abnormal nail with erythema surrounding the nail ) - Psych Psych: Normal mood - Free text exam Free text exam: Pts tongue appears to also be involved, there are areas of pallor with other areas of erythema, no throat swelling, no macroglossia. PD ED PE EXPANDED - General General: Alert, In Pain Results - Vitals Vitals: Vital Signs - 24 hr 08/27/23 08/27/23 12:43 16:59 Temperature 36.8 C Heart Rate 81 101 H Respiratory 20 24 Rate Blood Pressure 149/53 H 158/97 H O2 Saturation 98 98 Oxygen O2 Source Room air - Labs Labs: Microbiology 08/27/23 13:06 Wound Culture - Preliminary Hand - Left Laboratory Tests 08/27/23 08/27/23 08/27/23 13:11 13:11 13:11 WBC 15.8 H RBC 4.62 Hgb 14.2 Hct 44.7 MCV 96.8 MCH 30.7 MCHC 31.8 L RDW 13.4 Plt Count 211 MPV 10.4 Neut # (Auto) 13.5 H Lymph # (Auto) 1.2 L [place] # (Auto) 0.6 Eos # (Auto) 0.4 Baso # (Auto) 0.0 Absolute Nucleated RBC 0.00 Nucleated RBC % 0.0 Sodium Potassium Chloride Carbon Dioxide Anion Gap BUN Creatinine Estimated GFR (MDRD) Glucose Lactic Acid 1.6 Calcium Magnesium 1.9 Total Bilirubin AST ALT Alkaline Phosphatase Total Protein Albumin Globulin Albumin/Globulin Ratio 08/27/23 13:11 WBC RBC Hgb Hct MCV MCH MCHC RDW Plt Count MPV Neut # (Auto) Lymph # (Auto) [place] # (Auto) Eos # (Auto) Baso # (Auto) Absolute Nucleated RBC Nucleated RBC % Sodium 139 Potassium 4.1 Chloride 104 Carbon Dioxide 24 Anion Gap 11.0 BUN 23 H Creatinine 0.7 Estimated GFR (MDRD) 80 L Glucose 101 Lactic Acid Calcium 9.3 Magnesium Total Bilirubin 1.3 H AST 32 ALT 24 Alkaline Phosphatase 99 Total Protein 7.1 Albumin 4.1 Globulin 3.0 Albumin/Globulin Ratio 1.4 PD Medical Decision Making - ED course ED course: 82-year-old female with history of A-fib presents the emergency department for severe rash. Patient denies any history of psoriasis but says that she does not remember if she has ever been diagnosed with any sort of skin conditions in the past. Rashes concerning for David Nadeem syndrome, staphylococcal scaled skin, toxic epidermal nerolysis, drug rash, superinfection due to psorasis. 1424: 3-4 lesions punctured with an 11 blade purulent drainage was easily extracted from the pustules on the left hand. Wound sent for cultures. Will call infectious disease for further guidance patient remains afebrile and hemodynamically stable. Patient's daughter is at bedside who helps provide additional history patient's daughter confirms she does have a history of psoriasis and used to get in injections for this but has been off of them for some time now unknown how long. Her educational institution president is Dr. Villa with [place] [facility]. 1500:I spoke with infectious disease Dr. Elvis Herrera with [facility] who kindly was willing to advise on the patient. His differentials included possible disseminated gonorrhea, syphilis and is requesting that I discussed patient's sexual history with her and history of STIs with her as well. We will add on a RPR and further investigation of this being related to possible STI. He is also concerned that this could be related to an atypical drug rash given the timing of the Keflex and the sudden onset of the rash as well as possible SJS. His antibiotic recommendation is to start her on vancomycin for now and that she be admitted. I spoke with hospitalist at 1505 Dr. Chandler who said that we most likely do not have any other beds available he will reach out to charge nurse and will get back to me. IV vancomycin ordered, 2 sets of blood cultures ordered prior to initiating IV antibiotics. 1526: I spoke with Dr. Chandler will be our hospitalist about the patient after had confirmation that we do have beds available. I gave report to Dr. Chandler he said he would come and evaluate the patient himself and decide if patient needed to be admitted or not 1600: Dr. Chandler, would be hospitalist at bedside evaluating patient. Dr. Chandler feels confident this is most likely drug related reaction. He feels confident that patient does not need to be admitted and told patient that she is okay to discharge. Patient accidentally self pulled out her peripheral IV Dr. Chandler informed her that she does not need IV vancomycin. Patient is not amendable to continue to receive IV vancomycin. I spoke with the patient and the patient's daughter patient was strongly encouraged to follow-up with her educational institution president urgently sometime next week. She will be started on Bactrim twice daily for 7 days she will receive the first dose here in the emergency department. They were given very strict return precautions, patient's daughter was able to understand all the discharge teaching and was able to provide teach back and understands when to return to the emergency department for this rash. She will also be started on a low-dose steroid for the significant erythema that patient is experiencing from Dr. Chandler presumes is a drug reaction rash. Patient was informed that her blood cultures and wound cultures still pending and they will be notified if she needs to change antibiotics or come back to the emergency department.Patient was offered to continue to pursue hospitalization elsewhere and she declined for now said that she wanted to try going home and see how she feels at home and understands when to come back to the hospital. . - Consults Consults: Consulted (name) (Dr. Elvis Herrera, [facility]) Departure - Departure Disposition: 01 Home, Self Care Clinical Impression: Rash of entire body Drug reaction Qualifiers: Encounter type: initial encounter Qualified Code(s): T50.905A - Adverse effect of unspecified drugs, medicaments and biological substances, initial encounter Condition: Fair Instructions: ED Drug React Allergic Prescriptions: Sulfamethox/Trimeth 800/160 [Bactrim Ds] 1 tablet PO BID 7 Days #13 tablet predniSONE [Prednisone] 10 mg PO DAILYWM #3 tablet Comments: Thank you for trusting us with your care. We have sent a example from one of the blisters on your hand for further cultures. We have also sent 2 sets of blood cultures to the lab. We will call you if you need to come back to the hospital if you need to change the antibiotics. We started you on an antibiotic called Bactrim here in the emergency department gave you a small dose of steroids as well to help with your drug reaction rash and possible infected psoriasis. Please follow-up with your educational institution president soon as possible next week please have a very low threshold to come back to the emergency department if your rash gets any worse in any way shape or form, if you start develop any fevers or chills, lightheadedness, lack of energy, or any other concerning symptoms. Please have a very low threshold to come back. Discontinue the Keflex make sure that you inform your future providers that you have a severe allergy to Keflex in the future. Forms: PCP List
[2023-08-27 13:20] LABS: BASOPHILS % (AUTO) 0.3 %; EOSINOPHILS # (AUTO) 0.4 10^3/uL (0.0-0.7); EOSINOPHILS % (AUTO) 2.4 %; HCT - HEMATOCRIT 44.7 % (37.0-47.0); HGB - HEMOGLOBIN 14.2 g/dL (12.0-16.0); LYMPHOCYTES # (AUTO) 1.2 10^3/uL (1.5-3.5); LYMPHOCYTES % (AUTO) 7.8 %; MEAN CORPUSCULAR HEMOGLOBIN 30.7 pg (27.0-31.0); MEAN CORPUSCULAR HGB CONC 31.8 g/dL (32.0-36.0); MEAN CORPUSCULAR VOLUME 96.8 fL (81.0-99.0); MEAN PLATELET VOLUME 10.4 fL (7.9-10.8); MONOCYTES # (AUTO) 0.6 10^3/uL (0.0-1.0); MONOCYTES % (AUTO) 3.6 %; NEUTROPHILS # (AUTO) 13.5 10^3/uL (1.5-6.6); NEUTROPHILS % (AUTO) 85.5 %; PLT - PLATELET COUNT 211 10^3/uL (130-450); RED BLOOD COUNT 4.62 10^6/uL (4.20-5.40); RED CELL DISTRIBUTION WIDTH 13.4 % (12.0-15.0); WHITE BLOOD COUNT 15.8 x10^3/uL (4.8-10.8)
[2023-08-27 13:59] LABS: ALBUMIN 4.1 g/dL (3.2-5.5); ALBUMIN/GLOBULIN RATIO 1.4 (1.0-2.2); BILIRUBIN,TOTAL 1.3 mg/dL (0.2-1.0); CALCIUM 9.3 mg/dL (8.5-10.3); CREATININE 0.7 mg/dL (0.6-1.3); POTASSIUM 4.1 mmol/L (3.5-4.5); TOTAL PROTEIN 7.1 g/dL (6.4-8.9)
[2023-08-27] MEDS ORDERED: VANCOMYCIN INJ 1 GM in SODIUM CHLORIDE 0.9% 250 ML IV SCH (15:00)
[2023-08-27] MEDS ORDERED: predniSONE 5 MG TABLET PO STA (17:00)
[2023-08-27] MEDS ORDERED: SULFAMETH/TRIMETH DS 800/160 MG TABLET PO STA (17:01)
[2023-08-27 17:33] VITALS: BP 153/97
== END 2023-08-27 17:30 | disposition home or self-care (01) ==
LOC: EDSEX → EDUNIT# → ED 12:34
DX: R21 Rash and other nonspecific skin eruption (principal); T36.1X5A Adverse effect of cephalosporins and other beta-lactam antibiotics, initial encounter
CPT/HCPCS: 36415; 80053; 83605; 83735; 85025; 86780; 87040; 87070; 87205; 99283; 99284; A9270; J3370; J7512

== ENCOUNTER 2023-08-30 10:36 | Outpatient (CLI) | payer MEDICARE | END 2023-08-30 10:37 | disposition home or self-care (01) | LOC: LAB.S 10:36 | PROVIDERS: ATTEND Internal Medicine | DX: Z51.81 Encounter for therapeutic drug level monitoring (principal); Z79.01 Long term (current) use of anticoagulants | CPT/HCPCS: 36416; 85610 ==

== ENCOUNTER 2023-09-01 10:08 | Outpatient (CLI) | payer MEDICARE | END 2023-09-01 10:09 | disposition home or self-care (01) | LOC: LAB.S 10:08 | PROVIDERS: ATTEND Internal Medicine | DX: Z51.81 Encounter for therapeutic drug level monitoring (principal); Z79.01 Long term (current) use of anticoagulants | CPT/HCPCS: 36416; 85610 ==

== ENCOUNTER 2023-09-05 10:27 | Outpatient (CLI) | payer MEDICARE | END 2023-09-05 10:28 | disposition home or self-care (01) | LOC: LAB.S 10:27 | PROVIDERS: ATTEND Registered Nurse | DX: Z51.81 Encounter for therapeutic drug level monitoring (principal); Z79.01 Long term (current) use of anticoagulants | CPT/HCPCS: 36416; 85610 ==

== ENCOUNTER 2023-09-07 11:39 | Outpatient (CLI) | payer MEDICARE ==
[2023-09-07 11:55] LABS: BASOPHILS % (AUTO) 0.4 %; EOSINOPHILS # (AUTO) 0.3 10^3/uL (0.0-0.7); EOSINOPHILS % (AUTO) 2.9 %; HCT - HEMATOCRIT 43.8 % (37.0-47.0); HGB - HEMOGLOBIN 13.4 g/dL (12.0-16.0); LYMPHOCYTES # (AUTO) 2.4 10^3/uL (1.5-3.5); LYMPHOCYTES % (AUTO) 21.7 %; MEAN CORPUSCULAR HEMOGLOBIN 30.6 pg (27.0-31.0); MEAN CORPUSCULAR HGB CONC 30.6 g/dL (32.0-36.0); MEAN PLATELET VOLUME 9.3 fL (7.9-10.8); MONOCYTES # (AUTO) 0.5 10^3/uL (0.0-1.0); MONOCYTES % (AUTO) 4.6 %; NEUTROPHILS # (AUTO) 7.7 10^3/uL (1.5-6.6); NEUTROPHILS % (AUTO) 70.1 %; PLT - PLATELET COUNT 318 10^3/uL (130-450); RED BLOOD COUNT 4.38 10^6/uL (4.20-5.40); RED CELL DISTRIBUTION WIDTH 13.2 % (12.0-15.0)
[2023-09-07 12:10] LABS: ALBUMIN 4.2 g/dL (3.2-5.5); ALBUMIN/GLOBULIN RATIO 1.4 (1.0-2.2); BILIRUBIN,DIRECT 0.14 mg/dL (0.03-0.18); BILIRUBIN,TOTAL 0.6 mg/dL (0.2-1.0); CALCIUM 9.8 mg/dL (8.5-10.3); CREATININE 0.8 mg/dL (0.6-1.3); POTASSIUM 4.1 mmol/L (3.5-4.5); TOTAL PROTEIN 7.3 g/dL (6.4-8.9)
== END 2023-09-07 11:40 | disposition home or self-care (01) ==
LOC: LAB 11:39
PROVIDERS: ATTEND Nurse Practitioner
DX: L40.1 Generalized pustular psoriasis (principal)
CPT/HCPCS: 36415; 80053; 82248; 85025

== ENCOUNTER 2023-09-08 10:46 | Outpatient (CLI) | payer MEDICARE | END 2023-09-08 23:59 | disposition short-term general hospital (02) | LOC: EMS 10:46 | DX: R21 Rash and other nonspecific skin eruption (principal); R74.8 Abnormal levels of other serum enzymes | CPT/HCPCS: A0425; A0429 ==

== ENCOUNTER 2023-09-27 11:02 | Outpatient (CLI) | payer MEDICARE ==
[2023-09-27 16:22] LABS: ALBUMIN 3.9 g/dL (3.2-5.5); ALBUMIN/GLOBULIN RATIO 1.3 (1.0-2.2); BILIRUBIN,TOTAL 0.4 mg/dL (0.2-1.0); CALCIUM 9.8 mg/dL (8.5-10.3); CREATININE 0.7 mg/dL (0.6-1.3); POTASSIUM 4.1 mmol/L (3.5-4.5); TOTAL PROTEIN 6.8 g/dL (6.4-8.9)
== END 2023-09-27 11:03 | disposition home or self-care (01) ==
LOC: LAB.S 11:02
PROVIDERS: ATTEND Nurse Practitioner
DX: L40.1 Generalized pustular psoriasis (principal)
CPT/HCPCS: 36415; 80053

== ENCOUNTER 2023-10-19 12:38 | Outpatient (CLI) | payer MEDICARE | END 2023-10-19 23:59 | disposition left against medical advice (07) | LOC: EMS 12:38 | DX: R55 Syncope and collapse (principal) ==

== ENCOUNTER 2023-10-25 08:02 | Outpatient (CLI) | payer MEDICARE | END 2023-10-25 08:03 | disposition home or self-care (01) | LOC: LAB.R 08:02 | PROVIDERS: ATTEND Nurse Practitioner | DX: L40.1 Generalized pustular psoriasis (principal) | CPT/HCPCS: 87070; 87181; 87205 ==

== ENCOUNTER 2023-10-29 09:58 | Outpatient (CLI) | payer MEDICARE | END 2023-10-29 09:59 | disposition EMS.NT | LOC: EMS 09:58 | DX: Z04.3 Encounter for examination and observation following other accident (principal); W18.30XA Fall on same level, unspecified, initial encounter; Y93.E8 Activity, other personal hygiene; Y92.008 Other place in unspecified non-institutional (private) residence as the place of occurrence of the external cause ==

== ENCOUNTER 2023-11-10 12:38 | Outpatient (CLI) | payer MEDICARE | END 2023-11-10 12:39 | disposition critical access hospital (66) | LOC: EMS 12:38 | DX: R07.89 Other chest pain (principal); R07.1 Chest pain on breathing; R42 Dizziness and giddiness; I10 Essential (primary) hypertension | CPT/HCPCS: A0425; A0429 ==

== ENCOUNTER 2023-11-10 13:03 | Emergency (ER) | payer MEDICARE ==
--- NOTE | 2023-11-10 13:25 | ED Physician Documentation ---
PD HPI CHEST PAIN - Stated complaint Stated Complaint: CHEST DISCOMFORT - Chief complaint Chief Complaint: Cardiac - History obtained from History obtained from: Patient, EMS - Additional information Additional information: Patient is an 82-year-old female with a history of atrial fibrillation on warfarin presenting for evaluation of brief episode of left-sided chest pain. Patient states she was at her PCP for her regular appointment today when she was feeling lightheaded. She thought this was because due to her blood pressure was too low but in fact it was high. While they were evaluating her she reported having an episode of chest pain so EMS was called. Patient states the pain is gone. Did not radiate elsewhere. Denies feeling short of air. Has been compliant with her medications. No nausea, vomiting, diarrhea. Denies headache. No head injury. 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, Breast implants HEENT: Tonsil/Adenoidectomy - Present Medications Home Medications: Ambulatory Orders Medication Instructions Recorded Confirmed Estradiol 0.05 mg Patch [Climara 03/14/15 07/16/15 0.05 mg] Sotalol [Betapace] 80 mg PO DAILY 07/16/15 07/16/15 Metoprolol Succinate [Toprol Xl] 75 mg PO BID 30 Days #180 tablet 08/25/21 Propylene Glycol/Peg 400 15 ml OP BID #1 bottle 08/25/21 [Lubricant 0.3%-0.4% Eye Drops] HYDROcod/ACETAM 5/325 [[place] 5/325] 1 - 2 tab PO Q6H PRN #15 tablet 04/30/22 Doxycycline Hyclate 100 mg PO BID 7 Days #14 cap 05/06/22 HYDROcod/ACETAM 5/325 [[place] 5/325] 1 ea PO Q6H PRN #18 tablet 05/06/22 Neomycin Alvarez/Bacitra/Polymyxin 1 applic OP QID 4 Days #3.5 gm 05/06/22 [Enrique-Polycin Eye Ointment] Sulfamethox/Trimeth 800/160 1 tablet PO BID 7 Days #13 tablet 08/27/23 [Bactrim Ds] predniSONE [Prednisone] 10 mg PO DAILYWM #3 tablet 08/27/23 - Allergies Allergies/Adverse Reactions: Allergies Allergy/AdvReac Type Severity Reaction Status Date / Time amlodipine Allergy Unknown Verified 11/10/23 13:21 cephalexin [From Keflex] Allergy Rash Verified 11/10/23 13:21 - Social History Does the pt smoke?: No Smoking Status: Never smoker Does the pt drink ETOH?: No Does the pt have substance abuse?: No - Immunizations Immunizations are current?: Yes Immunizations: TDAP >10years/unknown - POLST Patient has POLST: No PD ED PE NORMAL - General General: Alert and oriented X 3, No acute distress, Well developed/nourished - HEENT HEENT: Atraumatic, Moist mucous membranes, Pharynx benign - Neck Neck: Supple, no meningeal sign - Cardiac Cardiac: RRR, Strong equal pulses - Respiratory Respiratory: No respiratory distress, Clear bilaterally - Abdomen Abdomen: Soft, Non tender, Non distended - Derm Derm: Warm and dry - Extremities Extremities: No edema, No calf tenderness / cord - Neuro Neuro: Alert and oriented X 3, No motor deficit, Normal speech Results - Vitals Vitals: Vital Signs - 24 hr 11/10/23 11/10/23 11/10/23 13:15 14:49 15:51 Temperature 36.3 C L Heart Rate 61 63 Heart Rate [ 70 Sitting] Heart Rate [ 70 Standing] Heart Rate [ 58 L Supine] Respiratory 15 17 Rate Blood Pressure 196/71 H 125/107 H Blood Pressure 184/89 H [Sitting] Blood Pressure 182/74 H [Standing] Blood Pressure 197/69 H [Supine] O2 Saturation 99 97 11/10/23 11/10/23 17:00 17:42 Temperature Heart Rate 64 67 Heart Rate [ Sitting] Heart Rate [ Standing] Heart Rate [ Supine] Respiratory 23 18 Rate Blood Pressure 186/79 H 186/79 H Blood Pressure [Sitting] Blood Pressure [Standing] Blood Pressure [Supine] O2 Saturation 98 96 Oxygen O2 Source Room air - EKG (time done) 1357 EKG releavant findings:: EKG personally interpreted by author of this note. Relevant findings are: Rate 59, sinus bradycardia, no STEMI, QTc 413 - Labs Labs: Laboratory Tests 11/10/23 11/10/23 11/10/23 13:40 13:40 13:40 WBC 8.5 RBC 4.21 Hgb 12.7 Hct 40.9 MCV 97.1 MCH 30.2 MCHC 31.1 L RDW 13.7 Plt Count 295 MPV 9.4 Neut # (Auto) 5.8 Lymph # (Auto) 2.0 [place] # (Auto) 0.4 Eos # (Auto) 0.2 Baso # (Auto) 0.0 Absolute Nucleated RBC 0.00 Nucleated RBC % 0.0 PT 25.5 H INR 2.4 H Sodium 139 Potassium 3.9 Chloride 105 Carbon Dioxide 30 Anion Gap 4.0 L BUN 24 H Creatinine 0.7 Estimated GFR (MDRD) 80 L Glucose 94 Calcium 9.6 Total Bilirubin 0.6 AST 19 ALT 9 L Alkaline Phosphatase 93 Troponin I High Sens 2.8 Total Protein 7.2 Albumin 3.9 Globulin 3.3 Albumin/Globulin Ratio 1.2 Lipase 26 11/10/23 16:05 WBC RBC Hgb Hct MCV MCH MCHC RDW Plt Count MPV Neut # (Auto) Lymph # (Auto) [place] # (Auto) Eos # (Auto) Baso # (Auto) Absolute Nucleated RBC Nucleated RBC % PT INR Sodium Potassium Chloride Carbon Dioxide Anion Gap BUN Creatinine Estimated GFR (MDRD) Glucose Calcium Total Bilirubin AST ALT Alkaline Phosphatase Troponin I High Sens 3.9 Total Protein Albumin Globulin Albumin/Globulin Ratio Lipase PD Medical Decision Making - ED course Complexity details: reviewed results, d/w patient ED course: Pt is an 82 yo F who had brief episode of CP while at PCP office. Pain free here. BP elevated but pt without symptoms here. EKG without acute ischemia. Pt on warfarin and INR therapeutic. CBC, chemistries, troponin reviewed and without significant findings. Chest XR without consolidation. 2nd troponin pending. Pt signed out to oncoming provider at shift change. Pt eager for discharge and anticipate discharge is 2nd troponin unchanged. Departure - Departure Disposition: 01 Home, Self Care Clinical Impression: Chest pain, Essential hypertension, Anticoagulation monitoring, INR range 2-3 Condition: Stable Instructions: ED Chest Pain Atypical Unkn Cause Follow-Up: Graciela Pruitt ARNP [Credentialed Staff Provider] - Within 3 Days Comments: You were evaluated for chest pain today. At this time we do not see signs of a heart attack but you do need close follow-up with your primary care provider. Your blood pressure also was elevated. Please make sure you are taking your Blood pressure Medication as directed every day. Again you need close follow-up with your primary care doctor regarding recheck of your blood pressure. Your warfarin level is in the goal range at 2.4. Return to the emergency department with any worsening symptoms. Forms: PCP List Discharge Date/Time: 11/10/23 17:42
[2023-11-10 13:50] LABS: BASOPHILS % (AUTO) 0.5 %; EOSINOPHILS # (AUTO) 0.2 10^3/uL (0.0-0.7); HCT - HEMATOCRIT 40.9 % (37.0-47.0); HGB - HEMOGLOBIN 12.7 g/dL (12.0-16.0); LYMPHOCYTES % (AUTO) 23.7 %; MEAN CORPUSCULAR HEMOGLOBIN 30.2 pg (27.0-31.0); MEAN CORPUSCULAR HGB CONC 31.1 g/dL (32.0-36.0); MEAN CORPUSCULAR VOLUME 97.1 fL (81.0-99.0); MEAN PLATELET VOLUME 9.4 fL (7.9-10.8); MONOCYTES # (AUTO) 0.4 10^3/uL (0.0-1.0); MONOCYTES % (AUTO) 5.2 %; NEUTROPHILS # (AUTO) 5.8 10^3/uL (1.5-6.6); NEUTROPHILS % (AUTO) 68.4 %; PLT - PLATELET COUNT 295 10^3/uL (130-450); RED BLOOD COUNT 4.21 10^6/uL (4.20-5.40); RED CELL DISTRIBUTION WIDTH 13.7 % (12.0-15.0); WHITE BLOOD COUNT 8.5 x10^3/uL (4.8-10.8)
[2023-11-10 13:55] LABS: INR 2.4 (0.8-1.2); PT - PROTHROMBIN TIME 25.5 secs (9.9-12.6)
[2023-11-10 14:05] LABS: ALBUMIN 3.9 g/dL (3.2-5.5); ALBUMIN/GLOBULIN RATIO 1.2 (1.0-2.2); BILIRUBIN,TOTAL 0.6 mg/dL (0.2-1.0); CALCIUM 9.6 mg/dL (8.5-10.3); CREATININE 0.7 mg/dL (0.6-1.3); POTASSIUM 3.9 mmol/L (3.5-4.5); TOTAL PROTEIN 7.2 g/dL (6.4-8.9)
[2023-11-10 14:13] LABS: TROPONIN I HIGH SENSITIVITY 2.8 ng/L (2.3-14.8)
--- NOTE | 2023-11-10 15:00 | XRAY Report ---
PROCEDURE: Chest 1V INDICATIONS: CP TECHNIQUE: One view of the chest was acquired. COMPARISON: None. FINDINGS: Surgical changes and devices: None. Lungs and pleura: No pleural effusions or pneumothorax. Lungs are clear. Mediastinum: Mediastinal contours appear normal. Heart size is normal. Bones and chest wall: No suspicious bony lesions. Overlying soft tissues appear unremarkable. IMPRESSION: No acute cardiopulmonary process. Reviewed by: Pastor Marquez MD on 11/10/2023 2:58 PM PDT Approved by: Pastor Marquez MD on 11/10/2023 2:58 PM PDT Station ID: [id number]
[2023-11-10 17:17] VITALS: BP 186/79
--- NOTE | 2023-11-10 17:28 | ED Physician Documentation ---
ED Addendum - Addendum Addendum: 11/10/23 17:[address] Pelayo at shift change pending repeat troponin. Repeat troponin done and flat/negative. Patient eager for discharge. She was reevaluated and is currently chest pain-free. I recommended follow-up with PCP for consideration for referral for stress testing. Disposition: Discharged home Condition: Stable
[2023-11-10 17:46] VITALS: O2SAT 96
== END 2023-11-10 17:42 | disposition home or self-care (01) ==
LOC: EDUNIT# → ED 13:03
DX: R07.9 Chest pain, unspecified (principal); I10 Essential (primary) hypertension; I48.91 Unspecified atrial fibrillation; D68.9 Coagulation defect, unspecified; Z79.899 Other long term (current) drug therapy
CPT/HCPCS: 36415; 80053; 83690; 84484; 85025; 85610; 93005; 99284

== ENCOUNTER 2023-12-01 08:00 | Outpatient (CLI) | payer MEDICARE | END 2023-12-01 08:01 | disposition home or self-care (01) | LOC: LAB.F 08:00 | PROVIDERS: ATTEND Registered Nurse | DX: I48.0 Paroxysmal atrial fibrillation (principal); I69.954 Hemiplegia and hemiparesis following unspecified cerebrovascular disease affecting left non-dominant side; Z79.01 Long term (current) use of anticoagulants ==

== ENCOUNTER 2023-12-20 16:55 | Outpatient (CLI) | payer MEDICARE | END 2023-12-20 23:59 | disposition critical access hospital (66) | LOC: EMS 16:55 | DX: R07.1 Chest pain on breathing (principal); I48.91 Unspecified atrial fibrillation | CPT/HCPCS: A0425; A0429 ==

== ENCOUNTER 2023-12-20 17:27 | Emergency (ER) | payer MEDICARE ==
--- NOTE | 2023-12-20 17:44 | ED Physician Documentation ---
PD HPI CHEST PAIN - Stated complaint Stated Complaint: CP - Chief complaint Chief Complaint: Cardiac - History obtained from History obtained from: Patient - Additional information Additional information: This is a gaye 83-year-old woman who presents by ambulance. She says she has brief chest pain only when she takes a deep breath. It is in the sternum and just the left of midline. If she is breathing quietly or holds her breath she has no pain at all. She is never had this before. When queried as to health problems she says she is seeing a lock and dam operator tomorrow for something. She is not sure. Chart shows that she does have a history of A-fib. And when queried on other health problems she says "I take a lot of pills." She is unable to state why. 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, Breast implants HEENT: Tonsil/Adenoidectomy - Present Medications Home Medications: Ambulatory Orders Medication Instructions Recorded Confirmed Estradiol 0.05 mg Patch [Climara 03/14/15 07/16/15 0.05 mg] Sotalol [Betapace] 80 mg PO DAILY 07/16/15 07/16/15 Metoprolol Succinate [Toprol Xl] 75 mg PO BID 30 Days #180 tablet 08/25/21 Propylene Glycol/Peg 400 15 ml OP BID #1 bottle 08/25/21 [Lubricant 0.3%-0.4% Eye Drops] HYDROcod/ACETAM 5/325 [[place] 5/325] 1 - 2 tab PO Q6H PRN #15 tablet 04/30/22 Doxycycline Hyclate 100 mg PO BID 7 Days #14 cap 05/06/22 HYDROcod/ACETAM 5/325 [[place] 5/325] 1 ea PO Q6H PRN #18 tablet 05/06/22 Neomycin Alvarez/Bacitra/Polymyxin 1 applic OP QID 4 Days #3.5 gm 05/06/22 [Enrique-Polycin Eye Ointment] Sulfamethox/Trimeth 800/160 1 tablet PO BID 7 Days #13 tablet 08/27/23 [Bactrim Ds] predniSONE [Prednisone] 10 mg PO DAILYWM #3 tablet 08/27/23 - Allergies Allergies/Adverse Reactions: Allergies Allergy/AdvReac Type Severity Reaction Status Date / Time amlodipine Allergy Unknown Verified 12/20/23 17:41 cephalexin [From Keflex] Allergy Rash Verified 12/20/23 17:41 - Social History Does the pt smoke?: No Smoking Status: Never smoker Does the pt drink ETOH?: No Does the pt have substance abuse?: No - Immunizations Immunizations are current?: Yes Immunizations: TDAP >10years/unknown - POLST Patient has POLST: No PD ED PE NORMAL - Vitals Vital signs reviewed: Yes - General General: Alert and oriented X 3, No acute distress - Neck Neck: Supple, no meningeal sign - Cardiac Cardiac: Other (3 out of 6 decrescendo systolic murmur heard best at the left upper sternal border. She has frequent extrasystoles.) - Respiratory Respiratory: No respiratory distress, Clear bilaterally - Abdomen Abdomen: Non tender - Extremities Extremities: No edema, No calf tenderness / cord - Neuro Neuro: Alert and oriented X 3, Normal speech Results - Vitals Vitals: Vital Signs - 24 hr 12/20/23 12/20/23 17:37 17:49 Temperature 37.1 C Heart Rate 59 L Respiratory 16 Rate Blood Pressure 155/65 H Blood Pressure 155/65 H [Right] O2 Saturation 97 Oxygen O2 Source Room air - EKG (time done) 1733 EKG releavant findings:: EKG personally interpreted by author of this note. Relevant findings are: Rate: Rate (enter#) (56) Rhythm: NSR, LAE [place]: Normal Intervals: Normal [place] QRS: LVH Ischemia: Non specific changes. No: ST elevation c/w ischemia - Labs Labs: Laboratory Tests 12/20/23 12/20/23 17:48 17:48 WBC 10.0 RBC 4.05 L Hgb 12.3 Hct 38.9 MCV 96.0 MCH 30.4 MCHC 31.6 L RDW 13.6 Plt Count 245 MPV 9.6 Neut # (Auto) 6.6 Lymph # (Auto) 2.5 [place] # (Auto) 0.6 Eos # (Auto) 0.3 Baso # (Auto) 0.0 Absolute Nucleated RBC 0.00 Nucleated RBC % 0.0 Sodium 138 Potassium 3.9 Chloride 104 Carbon Dioxide 26 Anion Gap 8.0 BUN 26 H Creatinine 0.9 Estimated GFR (MDRD) 60 L Glucose 101 Calcium 9.7 Total Bilirubin 0.4 AST 20 ALT 16 Alkaline Phosphatase 76 Troponin I High Sens 2.7 Total Protein 6.9 Albumin 4.1 Globulin 2.8 Albumin/Globulin Ratio 1.5 Lipase 55 PD Medical Decision Making - ED course ED course: She presents with chest pain, the description of only being present when she takes a deep breath is reassuring that this would not be a serious problem. She has no pedal edema or calf pain, shortness of breath, tachycardia, nor hypoxemia to suggest PE. ACS is considered unlikely given her nonischemic EKG but we will check a troponin. Primary pulmonary process such as pneumothorax or pneumonia is very unlikely as well but we will check a chest x-ray. Subsequent testing showed unremarkable CBC, chest x-ray, and negative troponin. Heart score is 2 for age only. Departure - Departure Disposition: 01 Home, Self Care Clinical Impression: Atypical chest pain Condition: Good Record reviewed to determine appropriate education?: Yes Instructions: ED Chest Pain NonCardiac Comments: Thankfully there is no indication that your current very atypical chest pain is from a serious cause such as a heart attack. You should keep your appointment with the lock and dam operator as scheduled, mention this visit to them. Return for new or worsening symptoms. Forms: PCP List
[2023-12-20 17:54] LABS: BASOPHILS % (AUTO) 0.3 %; EOSINOPHILS # (AUTO) 0.3 10^3/uL (0.0-0.7); EOSINOPHILS % (AUTO) 3.4 %; HCT - HEMATOCRIT 38.9 % (37.0-47.0); HGB - HEMOGLOBIN 12.3 g/dL (12.0-16.0); LYMPHOCYTES # (AUTO) 2.5 10^3/uL (1.5-3.5); LYMPHOCYTES % (AUTO) 24.9 %; MEAN CORPUSCULAR HEMOGLOBIN 30.4 pg (27.0-31.0); MEAN CORPUSCULAR HGB CONC 31.6 g/dL (32.0-36.0); MEAN PLATELET VOLUME 9.6 fL (7.9-10.8); MONOCYTES # (AUTO) 0.6 10^3/uL (0.0-1.0); MONOCYTES % (AUTO) 5.7 %; NEUTROPHILS # (AUTO) 6.6 10^3/uL (1.5-6.6); NEUTROPHILS % (AUTO) 65.5 %; PLT - PLATELET COUNT 245 10^3/uL (130-450); RED BLOOD COUNT 4.05 10^6/uL (4.20-5.40); RED CELL DISTRIBUTION WIDTH 13.6 % (12.0-15.0)
[2023-12-20 18:09] LABS: ALBUMIN 4.1 g/dL (3.2-5.5); ALBUMIN/GLOBULIN RATIO 1.5 (1.0-2.2); BILIRUBIN,TOTAL 0.4 mg/dL (0.2-1.0); CALCIUM 9.7 mg/dL (8.5-10.3); CREATININE 0.9 mg/dL (0.6-1.3); POTASSIUM 3.9 mmol/L (3.5-4.5); TOTAL PROTEIN 6.9 g/dL (6.4-8.9)
[2023-12-20 18:15] LABS: TROPONIN I HIGH SENSITIVITY 2.7 ng/L (2.3-14.8)
[2023-12-20 18:45] VITALS: BP 136/82; O2SAT 98
--- NOTE | 2023-12-20 19:16 | XRAY Report ---
PROCEDURE: Chest 1V INDICATIONS: Chest Pain TECHNIQUE: One view of the chest was acquired. COMPARISON: 11/10/2023: 422 FINDINGS: Surgical changes and devices: Mammoplasty implants are incidentally noted. Lungs and pleura: No pleural effusions or pneumothorax. Lungs are clear. Mediastinum: Mediastinal contours appear normal. Heart size is normal. Calcification is seen of t he aortic arch. Bones and chest wall: No suspicious bony lesions. Age-appropriate degenerative changes are seen. O verlying soft tissues appear unremarkable. IMPRESSION: Portable chest within normal limits for age. Postoperative and degenerative changes are seen. Reviewed by: Jasiel Santos MD on 12/20/2023 6:15 PM [facility] Approved by: Jasiel Santos MD on 12/20/2023 6:15 PM [facility] Station ID: [id number]
== END 2023-12-20 18:41 | disposition home or self-care (01) ==
LOC: EDUNIT# → ED 17:27
DX: R07.89 Other chest pain (principal); I48.91 Unspecified atrial fibrillation; Z79.899 Other long term (current) drug therapy
CPT/HCPCS: 36415; 80053; 83690; 84484; 85025; 93005; 99283; 99284

== ENCOUNTER 2024-01-24 12:54 | Outpatient (CLI) | payer MEDICARE | END 2024-01-24 12:55 | disposition home or self-care (01) | LOC: DI 12:54 | PROVIDERS: ATTEND Registered Nurse | DX: I48.0 Paroxysmal atrial fibrillation (principal); I69.954 Hemiplegia and hemiparesis following unspecified cerebrovascular disease affecting left non-dominant side; R29.6 Repeated falls; I35.1 Nonrheumatic aortic (valve) insufficiency | CPT/HCPCS: 93307 ==

== ENCOUNTER 2024-02-14 08:00 | Outpatient (CLI) | payer MEDICARE | END 2024-02-14 23:59 | disposition home or self-care (01) | LOC: LAB.F 08:00 | PROVIDERS: ATTEND Registered Nurse | DX: I48.0 Paroxysmal atrial fibrillation (principal); I69.954 Hemiplegia and hemiparesis following unspecified cerebrovascular disease affecting left non-dominant side; Z79.01 Long term (current) use of anticoagulants ==

== ENCOUNTER 2024-03-06 08:00 | Outpatient (CLI) | payer MEDICARE | END 2024-03-06 23:59 | disposition home or self-care (01) | LOC: LAB.F 08:00 | PROVIDERS: ATTEND Registered Nurse | DX: I48.0 Paroxysmal atrial fibrillation (principal); I69.954 Hemiplegia and hemiparesis following unspecified cerebrovascular disease affecting left non-dominant side; Z79.01 Long term (current) use of anticoagulants ==

== ENCOUNTER 2024-03-18 16:09 | Emergency (ER) | payer MEDICARE ==
--- NOTE | 2024-03-18 16:40 | ED Physician Documentation ---
History of Present Illness - Stated complaint Stated Complaint: RT ARM INJ - Chief complaint Chief Complaint: Trauma Ext - Additonal information Additional information: 83-year-old female presents after a fall on a treadmill today. She was walking on the treadmill at home, and stumbled and fell. Both her arms hit the treadmill and she sustained skin tears on the right forearm and a hematoma on the left forearm. She is on anticoagulation. She states she did not hit her head, had no loss of consciousness, denies any other injuries including to the hips pelvis back neck head. She is ambulatory after the incident. 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, Breast implants HEENT: Tonsil/Adenoidectomy - Present Medications Home Medications: Ambulatory Orders Medication Instructions Recorded Confirmed Estradiol 0.05 mg Patch [Climara 03/14/15 07/16/15 0.05 mg] Sotalol [Betapace] 80 mg PO DAILY 07/16/15 07/16/15 Metoprolol Succinate [Toprol Xl] 75 mg PO BID 30 Days #180 tablet 08/25/21 Propylene Glycol/Peg 400 15 ml OP BID #1 bottle 08/25/21 [Lubricant 0.3%-0.4% Eye Drops] HYDROcod/ACETAM 5/325 [[place] 5/325] 1 - 2 tab PO Q6H PRN #15 tablet 04/30/22 Doxycycline Hyclate 100 mg PO BID 7 Days #14 cap 05/06/22 HYDROcod/ACETAM 5/325 [[place] 5/325] 1 ea PO Q6H PRN #18 tablet 05/06/22 Neomycin Alvarez/Bacitra/Polymyxin 1 applic OP QID 4 Days #3.5 gm 05/06/22 [Enrique-Polycin Eye Ointment] Sulfamethox/Trimeth 800/160 1 tablet PO BID 7 Days #13 tablet 08/27/23 [Bactrim Ds] predniSONE [Prednisone] 10 mg PO DAILYWM #3 tablet 08/27/23 - Allergies Allergies/Adverse Reactions: Allergies Allergy/AdvReac Type Severity Reaction Status Date / Time amlodipine Allergy Unknown Verified 12/20/23 17:41 cephalexin [From Keflex] Allergy Rash Verified 12/20/23 17:41 - Social History Does the pt smoke?: No Smoking Status: Never smoker Does the pt drink ETOH?: No Does the pt have substance abuse?: No - Immunizations Immunizations are current?: Yes Immunizations: TDAP >10years/unknown - POLST Patient has POLST: No PD ED PE NORMAL - Vitals Vital signs reviewed: Yes - General General: Alert and oriented X 3, No acute distress, Well developed/nourished - HEENT HEENT: Atraumatic, PERRL, EOMI, Moist mucous membranes - Cardiac Cardiac: No murmur, Strong equal pulses - Respiratory Respiratory: No respiratory distress, Clear bilaterally - Derm Derm: Normal color, Warm and dry, Other (.5cm right elbow skintear and 4cm x 3mm right forearm skin tear. There is also a 1.5 cm diameter left forearm hematoma.) - Extremities Extremities: No deformity, No tenderness to palpate, Normal ROM s pain - Neuro Neuro: Alert and oriented X 3 Eye Opening: Spontaneous Motor: Obeys Commands Verbal: Oriented GCS Score: 15 Results - Vitals Vitals: Vital Signs - 24 hr 03/18/24 03/18/24 16:18 16:51 Temperature 36.0 C L 36.5 C Heart Rate 73 70 Respiratory 20 18 Rate Blood Pressure 215/72 H 180/70 H O2 Saturation 99 100 Oxygen O2 Source Room air PD Medical Decision Making - ED course Complexity details: d/w patient ED course: 83-year-old female presented after a fall from a treadmill today as described in HPI. The patient is very well-appearing here on physical exam, and has no bony injuries or areas of pain other than a skin tear on the right forearm right elbow and a small hematoma on the left forearm. She was mainly concerned about the hematoma and I reassured her that this should improve on its own over the course the next 1 to 2 weeks, she can use a cool compress and that they massage the area, and apply light compression to it. His skin tears on the right arm were cleaned and dressed and she was advised to continue to keep these clean with gentle soap and water at home and apply [id number] antibacterial ointment on this until it heals. There is no indication for any imaging today as patient did not sustain any bony injuries, and did not hit her head or have any other major traumatic injuries. She is stable for discharge home at this time. Departure - Departure Disposition: 01 Home, Self Care Clinical Impression: Skin tear of right upper extremity, Hematoma of left forearm Condition: Good Instructions: ED Hematoma, ED Avulsion Dermal Comments: You have a hematoma on the left arm. This is a collection of blood underneath the skin and this likely occurred because you are on a blood thinner. This will slowly get better but it can take 1 to 2 weeks. You can use a cool compress on this area and lightly massage it to help. If it becomes red and painful, please follow-up for reevaluation. On the right arm, you have a number of skin tears but these are too thin to suture. I recommend that you keep them clean with gentle soap and water and apply a [id number] topical antibiotic cream. These will slowly heal over the course the next couple of weeks. Forms: PCP List Discharge Date/Time: 03/18/24 16:51
[2024-03-18] MEDS: BACITRACIN ZINC OINT 1 PACKET TOP STA (16:50)
[2024-03-18 17:02] VITALS: BP 180/70; O2SAT 100
== END 2024-03-18 16:51 | disposition home or self-care (01) ==
LOC: ED 16:09
DX: S41.111A Laceration without foreign body of right upper arm, initial encounter (principal); S50.12XA Contusion of left forearm, initial encounter; W17.89XA Other fall from one level to another, initial encounter; Y93.A1 Activity, exercise machines primarily for cardiorespiratory conditioning; I48.91 Unspecified atrial fibrillation; Z98.82 Breast implant status; Z79.01 Long term (current) use of anticoagulants
CPT/HCPCS: 99282; A9270

== ENCOUNTER 2024-03-27 08:00 | Outpatient (CLI) | payer MEDICARE | END 2024-03-27 23:59 | disposition home or self-care (01) | LOC: LAB.F 08:00 | PROVIDERS: ATTEND Registered Nurse | DX: I48.0 Paroxysmal atrial fibrillation (principal); I69.954 Hemiplegia and hemiparesis following unspecified cerebrovascular disease affecting left non-dominant side; Z79.01 Long term (current) use of anticoagulants ==

== ENCOUNTER 2024-05-01 08:00 | Outpatient (CLI) | payer MEDICARE | END 2024-05-01 23:59 | disposition home or self-care (01) | LOC: LAB.F 08:00 | PROVIDERS: ATTEND Registered Nurse | DX: I48.0 Paroxysmal atrial fibrillation (principal); I69.354 Hemiplegia and hemiparesis following cerebral infarction affecting left non-dominant side; Z79.01 Long term (current) use of anticoagulants ==

== ENCOUNTER 2024-05-12 17:55 | Emergency (ER) | payer MEDICARE ==
[2024-05-12 18:28] LABS: BASOPHILS % (AUTO) 0.4 %; EOSINOPHILS # (AUTO) 0.4 10^3/uL (0.0-0.7); EOSINOPHILS % (AUTO) 4.9 %; HCT - HEMATOCRIT 40.6 % (37.0-47.0); HGB - HEMOGLOBIN 12.8 g/dL (12.0-16.0); LYMPHOCYTES # (AUTO) 2.7 10^3/uL (1.5-3.5); MEAN CORPUSCULAR HEMOGLOBIN 30.3 pg (27.0-31.0); MEAN CORPUSCULAR HGB CONC 31.5 g/dL (32.0-36.0); MEAN CORPUSCULAR VOLUME 96.2 fL (81.0-99.0); MEAN PLATELET VOLUME 9.9 fL (7.9-10.8); MONOCYTES # (AUTO) 0.4 10^3/uL (0.0-1.0); NEUTROPHILS # (AUTO) 4.2 10^3/uL (1.5-6.6); NEUTROPHILS % (AUTO) 54.6 %; PLT - PLATELET COUNT 210 10^3/uL (130-450); RED BLOOD COUNT 4.22 10^6/uL (4.20-5.40); RED CELL DISTRIBUTION WIDTH 13.2 % (12.0-15.0); WHITE BLOOD COUNT 7.6 x10^3/uL (4.8-10.8)
[2024-05-12 18:33] LABS: INR 3.7 (0.8-1.2); PT - PROTHROMBIN TIME 37.6 secs (9.9-12.6)
[2024-05-12 18:45] LABS: ALBUMIN 4.1 g/dL (3.2-5.5); ALBUMIN/GLOBULIN RATIO 1.8 (1.0-2.2); BILIRUBIN,TOTAL 0.5 mg/dL (0.2-1.0); CALCIUM 9.5 mg/dL (8.5-10.3); CREATININE 0.8 mg/dL (0.6-1.3); MAGNESIUM 1.9 mg/dL (1.7-2.3); POTASSIUM 3.6 mmol/L (3.5-4.5); TOTAL PROTEIN 6.4 g/dL (6.4-8.9)
[2024-05-12 18:56] LABS: THYROID STIMULATING HORMONE 1.88 uIU/mL (0.34-5.60)
[2024-05-12 19:56] VITALS: O2SAT 95
--- NOTE | 2024-05-12 19:59 | ED Physician Documentation ---
History of Present Illness - Stated complaint Stated Complaint: AFIB - Chief complaint Chief Complaint: Cardiac - Additonal information Additional information: 83-year-old female with history of atrial fibrillation anticoagulated on Coumadin, history of [place] and hypothyroid overall poor historian presents emergency department for concerns of atrial fibrillation. Patient is in the emergency department her friend who does not know much of her past medical history but patient says that according to her [employer] Watch has been saying that she has been in A-fib on and off for the last couple days. She says when she stands up she feels dizzy but this is chronic for her and not new. No chest pain or shortness of breath no nausea or vomiting. 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, Breast implants HEENT: Tonsil/Adenoidectomy - Present Medications Home Medications: Ambulatory Orders Medication Instructions Recorded Confirmed Losartan Potassium 25 mg 05/12/24 Rosuvastatin Calcium 5 mg PO 05/12/24 Warfarin Sodium [Jantoven] 4 mg 05/12/24 carvediloL [Coreg] 6.25 mg 05/12/24 methIMAzole [Methimazole] 5 mg 05/12/24 traZODone [Desyrel] 50 mg 05/12/24 - Allergies Allergies/Adverse Reactions: Allergies Allergy/AdvReac Type Severity Reaction Status Date / Time amlodipine Allergy Unknown Verified 05/12/24 18:03 cephalexin [From Keflex] Allergy Rash Verified 05/12/24 18:03 - Social History Does the pt smoke?: No Smoking Status: Never smoker Does the pt drink ETOH?: No Does the pt have substance abuse?: No - Immunizations Immunizations are current?: Yes Immunizations: TDAP >10years/unknown - POLST Patient has POLST: No PD ED PE NORMAL - Vitals Vital signs reviewed: Yes - General General: Alert and oriented X 3, No acute distress, Well developed/nourished - HEENT HEENT: Atraumatic, PERRL - Cardiac Cardiac: RRR, No murmur, No gallop, Strong equal pulses - Respiratory Respiratory: No respiratory distress, Clear bilaterally - Abdomen Abdomen: Normal bowel sounds, Soft, Non tender, No organomegaly - Back Back: No CVA TTP - Derm Derm: Normal color, Warm and dry, No rash - Neuro Neuro: Alert and oriented X 3, field operations coordinator 2-12 intact, No motor deficit, No sensory deficit, Normal speech - Psych Psych: Normal mood, Normal affect Results - Vitals Vitals: Vital Signs - 24 hr 05/12/24 05/12/24 05/12/24 18:03 18:09 19:10 Temperature 37.3 C 36.1 C L Heart Rate 102 H 69 75 Heart Rate [ Sitting] Heart Rate [ Standing] Heart Rate [ Supine] Respiratory 18 15 20 Rate Blood Pressure 187/90 H 198/99 H 176/101 H Blood Pressure [Sitting] Blood Pressure [Standing] Blood Pressure [Supine] O2 Saturation 97 96 96 05/12/24 05/12/24 05/12/24 19:53 19:55 19:57 Temperature 36.5 C Heart Rate 74 91 Heart Rate [ 74 Sitting] Heart Rate [ 85 Standing] Heart Rate [ 64 Supine] Respiratory 22 19 Rate Blood Pressure 157/91 H 132/72 H Blood Pressure 157/91 H [Sitting] Blood Pressure 132/72 H [Standing] Blood Pressure 185/82 H [Supine] O2 Saturation 95 95 Oxygen O2 Source Room air - EKG (time done) 1811 EKG releavant findings:: EKG personally interpreted by author of this note. Relevant findings are: Rate: Rate (enter#) (72) Rhythm: NSR [place]: Normal Intervals: Normal [place] QRS: Normal Ischemia: Other (atrial premature complexes, probable left atrial enlargement) Computer interpretation: Agree with computer - Labs Labs: Laboratory Tests 05/12/24 05/12/24 05/12/24 18:22 18:22 18:22 WBC 7.6 RBC 4.22 Hgb 12.8 Hct 40.6 MCV 96.2 MCH 30.3 MCHC 31.5 L RDW 13.2 Plt Count 210 MPV 9.9 Neut # (Auto) 4.2 Lymph # (Auto) 2.7 [place] # (Auto) 0.4 Eos # (Auto) 0.4 Baso # (Auto) 0.0 Absolute Nucleated RBC 0.00 Nucleated RBC % 0.0 PT 37.6 H INR 3.7 H Sodium 140 Potassium 3.6 Chloride 108 Carbon Dioxide 25 Anion Gap 7.0 BUN 18 Creatinine 0.8 Estimated GFR (MDRD) 68 L Glucose 106 H Calcium 9.5 Magnesium 1.9 Total Bilirubin 0.5 AST 22 ALT 15 Alkaline Phosphatase 67 Total Protein 6.4 Albumin 4.1 Globulin 2.3 Albumin/Globulin Ratio 1.8 TSH 1.88 PD Medical Decision Making - ED course ED course: 83-year-old female presents emergency department for concerns of atrial fibrillation. Labs are complete for further evaluation no leukocytosis no anemia no electrolyte abnormalities and TSH is within normal limits. INR is supratherapeutic at 3.7. EKG shows sinus rhythm with atrial premature complexes. Patient says that she is eager and anxious to get home vitals are stable here she does have positive orthostatic vital signs blood pressure dropped about 30 points from lying to standing but systolically remains above 130. She is told to follow-up with her primary care provider about today's findings to drink plenty of water and start wearing LINO hose to help with her Orthostatic hypotension. Return precautions given patient is safe for discharge at this time with her friend all questions answered. Departure - Departure Disposition: 01 Home, Self Care Clinical Impression: Supratherapeutic INR Instructions: Atrial Fibrillation Dc Comments: Thank you for trusting us with your care, we have evaluated you for your concerns of A-fib. She is your INR was supratherapeutic I would skip your Coumadin level for the next day or 2 and have your INR checked in 2 days. You could be going in and out of A-fib at home but here in the emergency department your heart rate is sustaining in the 60s to 70s not in A-fib. Your TSH level was found to be normal. Please follow-up with your primary care provider about today's ER visit and consider following up with cardiology if you have a financial service professional for further evaluation of the symptoms. When you stand up your blood pressure does drop quite a bit so be very cautious about sitting down for a few minutes before standing to give your body time to adjust you can also add things like LINO hose to help with orthostatic hypotension and drinking plenty of water. Please share all this information with your primary care provider. Please come back to the ER if you are having any chest pain, dizziness, worsening symptoms in any way shape or form. Forms: PCP List Discharge Date/Time: 05/12/24 20:05
[2024-05-12 20:19] VITALS: BP 132/72
== END 2024-05-12 20:05 | disposition home or self-care (01) ==
LOC: ED 17:55
DX: I48.91 Unspecified atrial fibrillation (principal); R79.1 Abnormal coagulation profile; R94.31 Abnormal electrocardiogram [ECG] [EKG]; Z79.01 Long term (current) use of anticoagulants
CPT/HCPCS: 36415; 80053; 83735; 84443; 85025; 85610; 93005; 99284